=== PATIENT | male | born 1975 | race Caucasian/White ===

== ENCOUNTER 2023-06-26 13:54 | Outpatient (BNV) | payer SELFPAY | END 2023-06-30 11:27 | PROVIDERS: Admitting Provider Psychiatry & Neurology Psychiatry; Visit Provider Internal Medicine Cardiovascular Disease | DX: R07.9 Chest pain, unspecified (principal) | CPT/HCPCS: 93010 ==

== ENCOUNTER 2023-06-26 13:54 | Inpatient (IN) | payer SELFPAY ==
[2023-06-26 14:18] VITALS: BP 134/98; PULSE 100; RESP 18; TEMP 36.5; O2SAT 93
[2023-06-26 14:19] VITALS: BMI 31.3
--- NOTE | 2023-06-26 16:29 | PM.EVENT ---
Event Note Date of Service: 06/26/23 Event Note: reviewed chart from sending hospital: Past medical history degenerative disc disease, atrial septal defect, brain aneurysm, stroke, multiple TIA?s, right thumb amputation status post cancer Elevated WBC; repeat CBC showed downward trend Otherwise labs grossly WNL including lytes, BUN/CR, H&H LFTs UDS not done; EKG not done Chest x-ray:? Patchy by basal opacities slightly decreased from prior study; no definite new airspace disease Time Spent With Patient Time: Total time managing care of this patient today ____ minutes.
--- NOTE | 2023-06-26 17:17 | P.CONHOSP_ITS ---
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 Medical consult for admission H&P. ?Patient complains of chronic lower back pain that is around baseline. Also complains of chronic right thumb phantom pain at site of amputation, around baseline. Also reports history of chronic headaches, currently symptom-free. Patient otherwise has no acute medical complaints. No chest pain/pressure, palpitations. Denies shortness of breath. No fever, chills, nausea, vomiting, abdominal pain. Denies acute vision loss, numbness/tingling or weakness in extremities. Patient seen freely ambulating on unit with cane. Reports he is mostly noncompliant with medications in the community. Chart review indicates he is on aspirin but not statin, the reason is unclear. Review of Systems Review of Systems: Chronic lower back pain Chronic phantom pain in right thumb at site of amputation Patient reports has no acute medical complaints at this time. 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 Atrial septal defect Amputation of right thumb Ischemic cerebrovascular accident (CVA) TIA (transient ischemic attack) Social History Advance Directives: No Advance Directives Information Provided: No Meds Allergies Allergy/AdvReac Type Severity Reaction Status Date / Time fish derived [fish] Allergy Severe Anaphylaxis Verified 06/26/23 16:05 Penicillins Allergy Severe Anaphylaxis Verified 06/26/23 16:05 Active Medications: Current Medications Acetaminophen (Acetaminophen 325 Mg Tablet) 650 mg PO Q6H PRN PRN Reason: Headache/Pain Mild Scale (1-3) Al Hydroxide/Mg Hydroxide (Magnesium Hydrox/Alum Hydrox 30 Ml Oral.Susp) 30 ml PO Q6H PRN PRN Reason: Heartburn/Nausea Hydroxyzine HCl (Hydroxyzine Hcl 25 Mg Tablet) 25 mg PO Q6H PRN PRN Reason: Anxiety Magnesium Hydroxide (Milk Of Magnesia 30 Ml Oral.Susp) 30 ml PO DAILY PRN PRN Reason: Constipation Nicotine Polacrilex (Nicotine Polacrilex 2 Mg Gum) 4 mg BUCCAL Q2H PRN PRN Reason: Nicotine Cravings Olanzapine (Olanzapine 5 Mg Tablet) 5 mg PO TID PRN PRN Reason: agitation Trazodone HCl (Trazodone Hcl 50 Mg Tablet) 50 mg PO BEDTIME MRX1 PRN PRN Reason: Insomnia Home Medications Medication Instructions Recorded Confirmed Last Taken Type Spiriva Respimat 2 puff inhalation DAILY 06/26/23 06/26/23 06/24/23 19:00 H istory 2 puffs albuterol 2 puff inhalation Q6H PRN 06/26/23 06/26/23 Unknown History Shortness Of Breath Or Wheezing aspirin 81 mg PO DAILY 06/26/23 06/26/23 06/26/23 09:00 History 81 mg budesonide-formoterol 2 puff inhalation BID 06/26/23 06/26/23 06/24/23 19:00 History 2 puffs cholecalciferol (vitamin D3) 2,000 units PO DAILY 06/26/23 06/26/23 06/26/23 09:00 History cyclobenzaprine 10 mg tablet 10 mg PO Q4H PRN Pain 06/26/23 06/26/23 06/26/23 09:00 History 10 mg gabapentin 300 mg capsule 600 mg PO BID 06/26/23 06/26/23 06/26/23 09:00 History 600 mg mirtazapine 30 mg tablet 30 mg PO BEDTIME 06/26/23 06/26/23 06/25/23 19:00 History 30 mg omeprazole 40 mg PO DAILY@0630 06/26/23 06/26/23 Unknown History quetiapine 200 mg tablet 200 mg PO BEDTIME 06/26/23 06/26/23 06/25/23 19:00 History 200 mg tramadol 50 mg tablet 50 - 100 mg PO Q4H PRN Pain 06/26/23 06/26/23 06/26/23 09:00 History 100 mg Physical Exam Vital Signs and Narrative: Vital Signs: Last Vital Signs Temp 97.7 F 06/26/23 14:18 Pulse 100 06/26/23 14:18 Resp 18 06/26/23 14:18 BP 134/98 H 06/26/23 14:18 Pulse Ox 93 06/26/23 14:18 O2 Del Method Room Air 06/26/23 14:18 BMI result Body Mass Index 31.3 General: AOx3, no acute distress Resp: CTA bilaterally CVS: S1, S2, RRR GI: +BS, NT, no distention Skin: Warm, dry Neuro: Cranial nerves II-XII grossly intact bilaterally. Motor grossly intact bilaterally. Right upper extremity hand blade bender furnace tender slightly diminished. Extremities: No edema. Right thumb s/p partial amputation. 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 Medical consult for admission H&P. Mood disorder Plan as per Psychiatry CAD/HLD/hx of TIAs and ischemic CVA Continue aspirin Patient does not appear to be on a statin Check lipid panel and consider starting on atorvastatin 40 mg daily if elevated GERD Continue PPI Asthma Not in acute exacerbation Continue home inhalers Chronic lower back pain Continue cyclobenzaprine, gabapentin Thank you for allowing us to participate in the care of this patient. Signing off at this time. Please re-consult if any acute complaints or issues arise.
[2023-06-26 18:00] VITALS: BP 122/85; PULSE 92; TEMP 36.4; O2SAT 93
[2023-06-26] MEDS: Cyclobenzaprine HCl 10 MG TABLET PO (18:09)
[2023-06-26] MEDS: traMADoL HCL 50 MG TABLET PO (18:09)
[2023-06-26] MEDS: QUEtiapine Fumarate 200 MG TABLET PO (19:48)
[2023-06-26] MEDS: Mirtazapine 30 MG TABLET PO (19:48)
[2023-06-26] MEDS: Gabapentin 300 MG CAPSULE 600 MG PO (19:48)
--- NOTE | 2023-06-27 01:36 | PC.ADMIT ---
A white, , Georgian-speaking male, aged 47 years was admitted to [facility] CV at [address] [facility] ED. Pt presented at [facility] on 06/25/23 c/o worsening depression and SI with a plan to shoot himself with a gun. Pt stated that he tried to get his gun from a friend, but was unable to reach him. Pt reported recently presenting at an ED with similar presentation; pt said was admitted I[facility] but discharged within 13 hours. Pt has a history of similar presentations. Pt reported history of two previous suicide attempts in the past. Pt reported anxiety 9/10, depression 7/10. Pt denied current SI and HI; pt says can seek help from staff. Pt denied AVH. Pt reports poor sleep with insomnia and frequent awakening. Pt reports 8/10 back and right thumb pain; pt utilized PRN flexeril and PRN tramadol with good effect. Pt is a daily smoker; PRN nicorette is ordered. Pt declined flu shot. Pt was cooperative with admission. Pt stated he is open to medication management. Pt says he currently does not have PCP, therapist, or psychiatric medication prescriber. Pt has meds ordered through Kris Aragon, a recent provider pt had at [place]. Pt reports sobriety from [facility] for 4 years and stated does not use substances. Medical issues include: history of TIAs, hyperlipidemia, GERD, esophageal erosion, asthma, COPD, history of pneumonia X 3 in 3 months, partial amputation of right thumb last January r/t squamous cell carcinoma, history of hernia, knee and neck surgery. Pt reported unwitnessed caron bleeding when having a bowel movement during shift. Pt stated bleeding r/t history of hemorrhoid removal, and an ulcer. Pt said also he is worried he may have a fissure. Pt stated rectal bleeding of this type has been a issue for him on and off for 15 years. Pt added this occurs especially when he is under stress. Pt is homeless and reports is with a 3 year old son. Pt says recent stressors include homelessness, cancer diagnosis and the fact that his and child are moving away to [place]. Pt is taking medications and eating meal. [id number] done, admission orders obtained and initial treatment plan done but not signed. Skin check done upon arrival. Pt was unable to do safety tool. Pt is resting in group room B on 15 minute checks at this time.
[2023-06-27 09:49] VITALS: BP 112/62; PULSE 90; RESP 18; TEMP 36.3; O2SAT 90
--- NOTE | 2023-06-27 10:28 | P.HPPS_ITS ---
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 Patient was recently discharge (either from psych ED or psychiatric admission) at his own request after a few hours, since he was not allowed to use his phone to face time his beloved son while on the unit, which is of paramount importance to him and his protection factor; he went to a hotel, but suicidality remained and he called his friend to get a hold of a gun but could not reach him. Patient then self presented. On the unit he is irritable with staff, not cooperative, refused some medications including inhaler out of irritation... And because of his demeanor is somewhat difficult with which to engage. Patient shares that he has lost everything due to cancer and multiple medical comorbidities. 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 Patient said if it were not for his son he would kill himself... He sometimes says his situation is unrepairable but other times says he wants to get better; however he often does not take medication after leaving the hospital; says because of homelessness hard to engage in therapy. Reports in the past he has been on Wellbutrin and lithium; agrees to get a Wellbutrin now. Patient has been sober for 4 years; denies manic episodes saying he got a bipolar diagnosis while he was steeped in alcohol abuse. Past Psychiatric History: Multiple past psychiatric admissions Reports history of overdoses and suicide attempts Med trials: Spivey, Wellbutrin, says both helped Medical Evaluation Reviewed: Yes Past medical history degenerative disc disease, atrial septal defect, brain aneurysm, stroke, multiple TIA?s, right thumb amputation status post cancer Elevated WBC; repeat CBC showed downward trend Otherwise labs grossly WNL including lytes, BUN/CR, H&H LFTs UDS not done; EKG not done Lipid panel/hemoglobin A1c not done; ordered here but patient refused Chest x-ray:? 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 Has a and 3-year-old son who live in [place]; not sure about the current relationship Patient is effectively homeless, sending money to his and child Substance History: Sober for 4 years; was drinking alcohol excessively prior to this Trauma History: Deferred Diagnostics Vital Signs (24Hr): Vital Signs - 24 hr 06/26/23 14:18 06/26/23 18:00 06/27/23 09:49 Temperature 97.7 F 97.5 F 97.4 F Pulse Rate 100 92 90 Respiratory Rate 18 18 Blood Pressure 134/98 H 122/85 112/62 Pulse Oximetry 93 93 90 L Oxygen Delivery Method Room Air Room Air Room Air BMI result Body Mass Index 31.3 Meds/Allergies Meds Home Medications Medication Instructions Recorded Confirmed Type Spiriva Respimat 2 puff inhalation DAILY 06/26/23 06/26/23 History albuterol 2 puff inhalation Q6H PRN 06/26/23 06/26/23 History Shortness Of Breath Or Wheezing aspirin 81 mg PO DAILY 06/26/23 06/26/23 History budesonide-formoterol 2 puff inhalation BID 06/26/23 06/26/23 History cholecalciferol (vitamin D3) 2,000 units PO DAILY 06/26/23 06/26/23 History cyclobenzaprine 10 mg tablet 10 mg PO Q4H PRN Pain 06/26/23 06/26/23 History gabapentin 300 mg capsule 600 mg PO BID 06/26/23 06/26/23 History mirtazapine 30 mg tablet 30 mg PO BEDTIME 06/26/23 06/26/23 History omeprazole 40 mg PO DAILY@0630 06/26/23 06/26/23 History quetiapine 200 mg tablet 200 mg PO BEDTIME 06/26/23 06/26/23 History tramadol 50 mg tablet 50 - 100 mg PO Q4H PRN Pain 06/26/23 06/26/23 History Allergies Allergies Allergy/AdvReac Type Severity Reaction Status Date / Time fish derived [fish] Allergy Severe Anaphylaxis Verified 06/26/23 16:05 Penicillins Allergy Severe Anaphylaxis Verified 06/26/23 16:05 Mental Status Exam Mental Status Exam Narrative: Pt is alert and oriented; behavior is irritable, reactive, un- cooperative; patient is not in distress; dressed in casual attire, scruffy and unkempt; mood is described as depressed and affect constricted; eye contact avoidant; Speech is normal rate, volume and prosody and not pressured; both psychomotor agitation/retardation present; thought process is organized and goal directed; Thought content is on psychosocial stressors; otherwise pertinent to relevant topics and without any delusional content, paranoid ideations or grandiosity; reports chronic, constant SI with recent plan and intent, however says son is strong protective factor and he would not kill himself; denies HI. There is no evidence of perceptual disturbance. Patients insight and judgment impaired Assessment & Plan Assessment & Plan (1) MDD (major depressive disorder), recurrent severe, without psychosis: Status: Acute Code(s): F33.2 - Major depressive disorder, recurrent severe without psychotic features (2) Amputation of right thumb: Status: Acute Code(s): S68.011A - Complete traumatic metacarpophalangeal amputation of right thumb, initial encounter (3) 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 Patient was recently discharge (either from psych ED or psychiatric admission) at his own request after a few hours, since he was not allowed to use his phone to face time his beloved son while on the unit, which is of paramount importance to him and his protection factor; he went to a hotel, but suicidality remained and he called his friend to get a hold of a gun but could not reach him. Patient then self presented. On the unit he is irritable with staff, not cooperative, refused some medications including inhaler out of irritation... And because of his demeanor is somewhat difficult with which to engage. Patient shares that he has lost everything due to cancer and multiple medical comorbidities. 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 Patient said if it were not for his son he would kill himself... He sometimes says his situation is unrepairable but other times says he wants to get better; however he often does not take medication after leaving the hospital; says because of homelessness hard to engage in therapy. Reports in the past he has been on Wellbutrin and lithium; agrees to get a Wellbutrin now. Patient has been sober for 4 years; denies manic episodes saying he got a bipolar diagnosis while he was steeped in alcohol abuse. Impression: Patient is irritable and somewhat a difficult historian. Reports depression which he seems to say is mostly situational and due to medical comorbidities and being away from his son. However there is likely a mood disorder as well. Patient Demonstrating borderline traits. Patient mentions both recent intention to kill himself as well as saying he would never kill himself; also that his situation can not be fixed but is future oriented, wanting to get back to work at [employer]. He is currently on mirtazapine 30 mg q.h.s. and Seroquel 200 mg q.h.s. which he says are only to help with sleep and not being used to treat any kind of psychiatric illness. He says he was on lithium and Wellbutrin in the past both of which were helpful; agrees to getting back on Wellbutrin since it is the easier of the 2 Plan: CV Q 15 minute checks Start Wellbutrin XL 150 mg daily Continue mirtazapine 30 mg q.h.s. Continue Seroquel 200 mg q.h.s. Patient refused labs for lipid panel and hemoglobin A1c Medical assessment: 1. CAD/HLD/hx of TIAs and ischemic CVA -Continue aspirin -not on statin -Check lipid panel and consider starting on atorvastatin 40 mg daily if elevated 2. GERD: Continue PPI 3. Asthma: Not in acute exacerbation, Continue home inhalers 4. Chronic lower back pain: Continue cyclobenzaprine, gabapentin Patient educated on: diagnosis, medication risk/benefits, substance abuse, therapeutic strategies and medical condition Informed Consent: understands Reason for continued inpatient stay Substantial Risk for: rapid decompensation Statement Statement: I have reviewed the history and physical and performed a pertinent examination on my patient. No changes have occurred unless specified. If the History and Physical was not performed prior to admission, the Hospitalist's service will be consulted for completing the admission physical. Time Spent With Patient Time: Total time managing care of this patient today ____ minutes.
[2023-06-27] MEDS: Cyclobenzaprine HCl 10 MG TABLET PO (16:25)
[2023-06-27] MEDS: traMADoL HCL 50 MG TABLET PO ×2 (16:25→19:45)
[2023-06-27] MEDS: Nicotine Polacrilex 2 MG GUM 4 MG BUCCAL (16:27)
[2023-06-27 19:30] VITALS: BP 122/62; PULSE 74; RESP 16; TEMP 36.6; O2SAT 97
[2023-06-27] MEDS: Gabapentin 300 MG CAPSULE 600 MG PO (19:44)
[2023-06-27] MEDS: QUEtiapine Fumarate 200 MG TABLET PO (19:45)
[2023-06-27] MEDS: Acetaminophen 325 MG TABLET 650 MG PO (19:45)
[2023-06-27] MEDS: Mirtazapine 30 MG TABLET PO (19:45)
[2023-06-27 20:11] LABS: Appearance Urine Clear; Color Urine Yellow; Glucose Urine UA Negative (Negative); Leukocyte Esterase Urine Negative (Negative); Nitrite Urine Negative (Negative); Specific Gravity - Urine 1.015 (1.005-1.025); Urine Blood Negative (Negative); Urine Ketones Negative (Negative); Urine Protein Negative (Neg-Trace)
[2023-06-27 20:25] LABS: Bacteria Urine Trace (None Seen); Hyaline Casts Urine 0-2 /LPF (0-2); RBC Urine 0-2 /HPF (0-2); Squamous Epithelial Cell Urine 0-2 /HPF (0-2); WBC Urine 0-5 /HPF (0-5)
[2023-06-27] MEDS: hydrOXYzine HCL 25 MG TABLET PO (20:42)
[2023-06-28 06:00] VITALS: RESP 18
--- NOTE | 2023-06-28 11:02 | P.PNPSI_ITS ---
Subjective Subjective Date of Service: 06/28/23 Reason For Visit: Unspecified mood disorde Interim History: met with patient; discussed with team pt irritable this AM regarding tramadol orders, saying they were wrong; in his irritation he refused all his AM meds; pt then said he also had a migraine. He later apologized to staff for being irritable, barking at people. pt talked about his life struggles with medical illness and thumb amputation from this past Jan. He said he does not want Oxy since he has been sober from alcohol for 4 years and does not want to risk addiction. He says he's been getting tramadol for the pain; voluneers that maybe it's just phantom pain... but it still hurts. Pt says he's still suicidal but also says he would not hurt himself out of love for his son; he also expresses a lot of future oriented thinking saying he calls daily to the mcc in [place] (down the street from /son) to see if there is room; he also says he's trying to find a family mcc up her in [place] and that the family will go to whichever comes open first. Pt also talks about wanting to eventually get back to work at [employer] and that he would transfer down to a store in [place] at some point if that's where he ends up. Discussed meds and pt grateful that field underwriter is exploring med management w/ him. He continues to agree to Wellbutrin but also agrees to try low dose Risperdal to see if it will help w/ he says is a chronic anger that's always with him... Mental Status Exam Mental Status Exam Narrative: Pt is alert and oriented; behavior is irritable, emotionally reactive, but also able to calm down, be cooperative and apologetic; patient is not in distress; dressed in casual attire, scruffy and unkempt; mood is described as depressed and affect constricted; eye contact appropriate; Speech is normal rate, volume and prosody and not pressured; both psychomotor agitation/retardation present; thought process is organized and goal directed; Thought content is on psychosocial stressors; otherwise pertinent to relevant topics and without any delusional content, paranoid ideations or grandiosity; reports chronic, constant SI with recent plan and intent, however says son is strong protective factor and he would not kill himself; denies HI. There is no evidence of perceptual disturbance. Patients insight and judgment impaired but likely close to baseline. Diagnostics Vital Signs (24Hr): Vital Signs - 24 hr 06/27/23 19:30 06/28/23 06:00 Temperature 97.8 F Pulse Rate 74 Respiratory Rate 16 18 Blood Pressure 122/62 Pulse Oximetry 97 Oxygen Delivery Method Room Air BMI result Body Mass Index 31.3 Labs Labs: Laboratory Results - last 48 hr 06/27/23 20:00 Urine Color Yellow Urine Appearance Clear Urine pH 6.0 Ur Specific [place] 1.015 Urine Protein Negative Urine Glucose (UA) Negative Urine Ketones Negative Urine Blood Negative Urine Nitrite Negative Ur Leukocyte Esterase Negative Urine RBC 0-2 Urine WBC 0-5 Ur Squamous Epith Cells 0-2 Urine Bacteria Trace Hyaline Casts 0-2 Medications Medications Current Medications Acetaminophen (Acetaminophen 325 Mg Tablet) 650 mg PO Q6H PRN PRN Reason: Headache/Pain Mild Scale (1-3) Last Admin: 06/27/23 19:45 Dose: 650 mg Al Hydroxide/Mg Hydroxide (Magnesium Hydrox/Alum Hydrox 30 Ml Oral.Susp) 30 ml PO Q6H PRN PRN Reason: Heartburn/Nausea Albuterol Sulfate (Albuterol Sulfate 90 Mcg 8 Gm Inhaler) 2 puff INHALE Q6H PRN PRN Reason: Shortness Of Breath Or Wheezing Aspirin (Aspirin Enteric Coated 81 Mg Tablet.Dr) 81 mg PO DAILY [facility] Last Admin: 06/28/23 09:44 Dose: Not Given Bupropion HCl (Bupropion Hcl Xl 150 Mg Tab.Er.24h) 150 mg PO DAILY [facility] Last Admin: 06/28/23 09:44 Dose: Not Given Cyclobenzaprine HCl (Cyclobenzaprine Hcl 10 Mg Tablet) 10 mg PO Q4H PRN PRN Reason: musculo-skeletal discomfort Last Admin: 06/27/23 16:25 Dose: 10 mg Fluticasone/Vilanterol (Fluticasone/Vilanterol 200/25 Blst.W.Dev) 1 puff INHALE RDAILY [facility] Last Admin: 06/28/23 08:21 Dose: Not Given Gabapentin (Gabapentin 300 Mg Capsule) 600 mg PO BID [facility] Last Admin: 06/28/23 09:45 Dose: Not Given Hydroxyzine HCl (Hydroxyzine Hcl 25 Mg Tablet) 25 mg PO Q6H PRN PRN Reason: Anxiety Last Admin: 06/27/23 20:42 Dose: 25 mg Magnesium Hydroxide (Milk Of Magnesia 30 Ml Oral.Susp) 30 ml PO DAILY PRN PRN Reason: Constipation Mirtazapine (Mirtazapine 30 Mg Tablet) 30 mg PO BEDTIME [facility] Last Admin: 06/27/23 19:45 Dose: 30 mg Nicotine Polacrilex (Nicotine Polacrilex 2 Mg Gum) 4 mg BUCCAL Q2H PRN PRN Reason: Nicotine Cravings Last Admin: 06/27/23 16:27 Dose: 2 mg Olanzapine (Olanzapine 5 Mg Tablet) 5 mg PO TID PRN PRN Reason: agitation Omeprazole (Omeprazole 40 Mg Capsule.Dr) 40 mg PO DAILY@0630 [facility] Last Admin: 06/28/23 06:28 Dose: Not Given Quetiapine Fumarate (Quetiapine Fumarate 200 Mg Tablet) 200 mg PO BEDTIME [facility] Last Admin: 06/27/23 19:45 Dose: 200 mg Tiotropium [place] (Tiotropium [place] 2.5 Mcg 1 Puff/2.5 Mcg Mist.Inhal) 2 puff INHALE RDAILY [facility] Last Admin: 06/28/23 08:21 Dose: Not Given Tramadol HCl (Tramadol Hcl 50 Mg Tablet) 50 mg PO Q4H PRN PRN Reason: Pain, Severe (Pain Scale 7-10) Last Admin: 06/27/23 19:45 Dose: 50 mg Trazodone HCl (Trazodone Hcl 50 Mg Tablet) 50 mg PO BEDTIME MRX1 PRN PRN Reason: Insomnia Vitamin D (Cholecalciferol (Vitamin D3) 25 Mcg Tablet) 25 mcg PO DAILY [facility] Last Admin: 06/28/23 09:44 Dose: Not Given Allergies Allergies Allergy/AdvReac Type Severity Reaction Status Date / Time fish derived [fish] Allergy Severe Anaphylaxis Verified 06/26/23 16:05 Penicillins Allergy Severe Anaphylaxis Verified 06/26/23 16:05 Assessment & Plan Assessment & Plan (1) MDD (major depressive disorder), recurrent severe, without psychosis: Status: Acute Code(s): F33.2 - Major depressive disorder, recurrent severe without psychotic features (2) Amputation of right thumb: Status: Acute Code(s): S68.011A - Complete traumatic metacarpophalangeal amputation of right thumb, initial encounter (3) 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 Patient was recently discharge (either from psych ED or psychiatric admission) at his own request after a few hours, since he was not allowed to use his phone to face time his beloved son while on the unit, which is of paramount importance to him and his protection factor; he went to a hotel, but suicidality remained and he called his friend to get a hold of a gun but could not reach him. Patient then self presented. On the unit he is irritable with staff, not cooperative, refused some medications including inhaler out of irritation... And because of his demeanor is somewhat difficult with which to engage. Patient shares that he has lost everything due to cancer and multiple medical comorbidities. 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 Patient said if it were not for his son he would kill himself... He sometimes says his situation is unrepairable but other times says he wants to get better; however he often does not take medication after leaving the hospital; says because of homelessness hard to engage in therapy. Reports in the past he has been on Wellbutrin and lithium; agrees to get a Wellbutrin now. Patient has been sober for 4 years; denies manic episodes saying he got a bipolar diagnosis while he was steeped in alcohol abuse. Initial Impression: On admission Patient is irritable and somewhat a difficult historian. Reports depression which he seems to say is mostly situational and due to medical comorbidities and being away from his son. However there is likely a mood disorder as well. Patient Demonstrating borderline traits. Patient mentions both recent intention to kill himself as well as saying he would never kill himself; he is future oriented, wanting to get back to his family and eventually back work at [employer]. He is currently on mirtazapine 30 mg q.h.s. and Seroquel 200 mg q.h.s. which he says are only to help with sleep and not being used to treat any kind of psychiatric illness. He says he was on lithium and Wellbutrin in the past both of which were helpful; agrees to getting back on Wellbutrin since it is the easier of the two. -patient struggles with chronic SI and emotional reactivity and at times thinks about suicide; however he seems to be stongly committed to his family and thus, continually says he remains here for his son. He has the same approach to getting help, initially saying nothing will help...and finding reasons justifying this perspective, but again remains future oriented, wanted psychotropic medications and making plans to resolve his issues, get back with his family and get back to work. Hospital course: 06/27 pt irritable this AM regarding tramadol orders, saying they were wrong; in his irritation he refused all his AM meds; pt then said he also had a migraine. He later apologized to staff for being irritable, barking at people. pt talked about his life struggles with medical illness and thumb amputation from this past Jan. He said he does not want Oxy since he has been sober from alcohol for 4 years and does not want to risk addiction. He says he's been getting tramadol for the pain; voluneers that maybe it's just phantom pain... but it still hurts. Pt says he's still suicidal but also says he would not hurt himself out of love for his son; he also expresses a lot of future oriented thinking saying he calls daily to the mcc in [place] (down the street from /son) to see if there is room; he also says he's trying to find a family mcc up her in [place] and that the family will go to whichever comes open first. Pt also talks about wanting to eventually get back to work at [employer] and that he would transfer down to a store in [place] at some point if that's where he ends up. Discussed meds and pt grateful that field underwriter is exploring med management w/ him. He continues to agree to Wellbutrin but also agrees to try low dose Risperdal to see if it will help w/ he says is a chronic anger that's always with him... Plan: CV Q 15 minute checks START Risperdal 0.5mg bID Continue Wellbutrin XL 150 mg daily Continue mirtazapine 30 mg q.h.s.(for sleep) Continue Seroquel 200 mg q.h.s. (for sleep) Conitnue Tramadol 50mg q4h prn with option to take 2 tabs together; total daily dose of 300mg (field underwriter reviewed [facility] and last script was for 7 days, 50mg tabs Qty 35 (ostensibly making total daily dose 250mg) Patient refused labs for lipid panel and hemoglobin A1c Medical assessment: 1. CAD/HLD/hx of TIAs and ischemic CVA -Continue aspirin -not on statin -Check lipid panel and consider starting on atorvastatin 40 mg daily if elevated 2. GERD: Continue PPI 3. Asthma: Not in acute exacerbation, Continue home inhalers 4. Chronic lower back pain: Continue cyclobenzaprine, gabapentin Patient educated on: diagnosis, medication risk/benefits and medical condition Informed Consent: understands and further education needed Reason for continued inpatient stay Substantial Risk for: stable for discharge Time Spent With Patient Time: Total time managing care of this patient today ____ minutes.
[2023-06-28] MEDS: traMADoL HCL 50 MG TABLET PO ×3 (12:41→20:20)
[2023-06-28 17:07] VITALS: BP 127/85; PULSE 107; RESP 20; TEMP 36.2; O2SAT 95
[2023-06-28] MEDS: hydrOXYzine HCL 25 MG TABLET PO (17:22)
[2023-06-28] MEDS: Gabapentin 300 MG CAPSULE 600 MG PO (20:19)
[2023-06-28] MEDS: Cyclobenzaprine HCl 10 MG TABLET PO (20:19)
[2023-06-28] MEDS: Mirtazapine 30 MG TABLET PO (20:20)
[2023-06-28] MEDS: QUEtiapine Fumarate 200 MG TABLET PO (20:20)
[2023-06-28] MEDS: traZODone HCL 50 MG TABLET PO (20:20)
[2023-06-29 08:59] VITALS: RESP 18
[2023-06-29] MEDS: buPROPion HCl XL 150 MG TAB.ER.24H PO (09:46)
[2023-06-29] MEDS: Gabapentin 300 MG CAPSULE 600 MG PO ×2 (09:46→20:10)
[2023-06-29] MEDS: risperiDONE 0.5 MG TABLET PO ×2 (09:46→20:09)
[2023-06-29] MEDS: Aspirin Enteric Coated 81 MG TABLET.DR PO (09:46)
[2023-06-29] MEDS: Tiotropium Bromide 2.5 mcg 1 PUFF/2.5 MCG MIST.INHAL 2 PUFF INHALE (09:46)
[2023-06-29] MEDS: Omeprazole 40 MG CAPSULE.DR PO (09:46)
[2023-06-29] MEDS: Cholecalciferol (Vitamin D3) 25 MCG TABLET PO (09:46)
[2023-06-29] MEDS: Fluticasone/Vilanterol 200/25 BLST.W.DEV 1 PUFF INHALE (09:47)
--- NOTE | 2023-06-29 11:29 | P.PNPSI_ITS ---
Subjective Subjective Date of Service: 06/29/23 Reason For Visit: Unspecified mood disorde Subjective Notes: Conditional Voluntary Interim History: Reviewed with Dr. Guevara. Keeping to self. laying in bed. Pt reports feeling more tired than usual today; pt stated, I feel like everything is aggravating me. Normally my son calms me down. I want to get back to work and get my life on track . pt denies SI/HI/VH/AH. Pt reports he is open to go to either respite or a assisted . Medication Compliance: Yes Mental Status Exam Mental Status Exam Narrative: Pt is alert and oriented; behavior is cooperative and calm; dressed in casual attire; mood is described as okay ; eye contact appropriate; Speech is normal rate, volume and prosody and not pressured; thought process is organized and goal directed; Thought content is on tx; denies SI/HI/VH/AH. Diagnostics Vital Signs (24Hr): Vital Signs - 24 hr 06/28/23 17:07 06/29/23 08:59 Temperature 97.2 F Pulse Rate 107 H Respiratory Rate 20 18 Blood Pressure 127/85 Pulse Oximetry 95 Oxygen Delivery Method Room Air BMI result Body Mass Index 31.3 Labs Labs: Laboratory Results - last 48 hr 06/27/23 20:00 Urine Color Yellow Urine Appearance Clear Urine pH 6.0 Ur Specific [place] 1.015 Urine Protein Negative Urine Glucose (UA) Negative Urine Ketones Negative Urine Blood Negative Urine Nitrite Negative Ur Leukocyte Esterase Negative Urine RBC 0-2 Urine WBC 0-5 Ur Squamous Epith Cells 0-2 Urine Bacteria Trace Hyaline Casts 0-2 Medications Medications Current Medications Acetaminophen (Acetaminophen 325 Mg Tablet) 650 mg PO Q6H PRN PRN Reason: Headache/Pain Mild Scale (1-3) Last Admin: 06/27/23 19:45 Dose: 650 mg Al Hydroxide/Mg Hydroxide (Magnesium Hydrox/Alum Hydrox 30 Ml Oral.Susp) 30 ml PO Q6H PRN PRN Reason: Heartburn/Nausea Albuterol Sulfate (Albuterol Sulfate 90 Mcg 8 Gm Inhaler) 2 puff INHALE Q6H PRN PRN Reason: Shortness Of Breath Or Wheezing Aspirin (Aspirin Enteric Coated 81 Mg Tablet.) 81 mg PO DAILY [facility] Last Admin: 06/29/23 09:46 Dose: 81 mg Bupropion HCl (Bupropion Hcl Xl 150 Mg Tab.Er.24h) 150 mg PO DAILY [facility] Last Admin: 06/29/23 09:46 Dose: 150 mg Cyclobenzaprine HCl (Cyclobenzaprine Hcl 10 Mg Tablet) 10 mg PO Q4H PRN PRN Reason: musculo-skeletal discomfort Last Admin: 06/28/23 20:19 Dose: 10 mg Fluticasone/Vilanterol (Fluticasone/Vilanterol 200/25 Blst.W.Dev) 1 puff INHALE RDAILY [facility] Last Admin: 06/29/23 09:47 Dose: 1 puff Gabapentin (Gabapentin 300 Mg Capsule) 600 mg PO BID [facility] Last Admin: 06/29/23 09:46 Dose: 600 mg Hydroxyzine HCl (Hydroxyzine Hcl 25 Mg Tablet) 25 mg PO Q6H PRN PRN Reason: Anxiety Last Admin: 06/28/23 17:22 Dose: 25 mg Magnesium Hydroxide (Milk Of Magnesia 30 Ml Oral.Susp) 30 ml PO DAILY PRN PRN Reason: Constipation Mirtazapine (Mirtazapine 30 Mg Tablet) 30 mg PO BEDTIME [facility] Last Admin: 06/28/23 20:20 Dose: 30 mg Nicotine Polacrilex (Nicotine Polacrilex 2 Mg Gum) 4 mg BUCCAL Q2H PRN PRN Reason: Nicotine Cravings Last Admin: 06/27/23 16:27 Dose: 2 mg Olanzapine (Olanzapine 5 Mg Tablet) 5 mg PO TID PRN PRN Reason: agitation Omeprazole (Omeprazole 40 Mg Capsule.Dr) 40 mg PO DAILY@0630 [facility] Last Admin: 06/29/23 09:46 Dose: 40 mg Quetiapine Fumarate (Quetiapine Fumarate 200 Mg Tablet) 200 mg PO BEDTIME [facility] Last Admin: 06/28/23 20:20 Dose: 200 mg Risperidone (Risperidone 0.5 Mg Tablet) 0.5 mg PO BID [facility] Last Admin: 06/29/23 09:46 Dose: 0.5 mg Tiotropium [place] (Tiotropium [place] 2.5 Mcg 1 Puff/2.5 Mcg Mist.Inhal) 2 puff INHALE RDAILY [facility] Last Admin: 06/29/23 09:46 Dose: 2 puff Tramadol HCl (Tramadol Hcl 50 Mg Tablet) 50 mg PO Q4H PRN PRN Reason: Pain, Severe (Pain Scale 7-10) Last Admin: 06/28/23 20:20 Dose: 50 mg Trazodone HCl (Trazodone Hcl 50 Mg Tablet) 50 mg PO BEDTIME MRX1 PRN PRN Reason: Insomnia Last Admin: 06/28/23 20:20 Dose: 50 mg Vitamin D (Cholecalciferol (Vitamin D3) 25 Mcg Tablet) 25 mcg PO DAILY [facility] Last Admin: 06/29/23 09:46 Dose: 25 mcg Allergies Allergies Allergy/AdvReac Type Severity Reaction Status Date / Time fish derived [fish] Allergy Severe Anaphylaxis Verified 06/26/23 16:05 Penicillins Allergy Severe Anaphylaxis Verified 06/26/23 16:05 Assessment & Plan Assessment & Plan (1) MDD (major depressive disorder), recurrent severe, without psychosis: Status: Acute Code(s): F33.2 - Major depressive disorder, recurrent severe without psychotic features (2) Amputation of right thumb: Status: Acute Code(s): S68.011A - Complete traumatic metacarpophalangeal amputation of right thumb, initial encounter (3) 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 Patient was recently discharge (either from psych ED or psychiatric admission) at his own request after a few hours, since he was not allowed to use his phone to face time his beloved son while on the unit, which is of paramount importance to him and his protection factor; he went to a hotel, but suicidality remained and he called his friend to get a hold of a gun but could not reach him. Patient then self presented. On the unit he is irritable with staff, not cooperative, refused some medications including inhaler out of irritation... And because of his demeanor is somewhat difficult with which to engage. Patient shares that he has lost everything due to cancer and multiple medical comorbidities. 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 Patient said if it were not for his son he would kill himself... He sometimes says his situation is unrepairable but other times says he wants to get better; however he often does not take medication after leaving the hospital; says because of homelessness hard to engage in therapy. Reports in the past he has been on Wellbutrin and lithium; agrees to get a Wellbutrin now. Patient has been sober for 4 years; denies manic episodes saying he got a bipolar diagnosis while he was steeped in alcohol abuse. Impression: Patient is irritable and somewhat a difficult historian. Reports depression which he seems to say is mostly situational and due to medical comorbidities and being away from his son. However there is likely a mood disorder as well. Patient Demonstrating borderline traits. Patient mentions both recent intention to kill himself as well as saying he would never kill himself; also that his situation can not be fixed but is future oriented, wanting to get back to work at [employer]. He is currently on mirtazapine 30 mg q.h.s. and Seroquel 200 mg q.h.s. which he says are only to help with sleep and not being used to treat any kind of psychiatric illness. He says he was on lithium and Wellbutrin in the past both of which were helpful; agrees to getting back on Wellbutrin since it is the easier of the 2 Plan: CV Q 15 minute checks Start Wellbutrin XL 150 mg daily Continue mirtazapine 30 mg q.h.s. Continue Seroquel 200 mg q.h.s. Patient refused labs for lipid panel and hemoglobin A1c Medical assessment: 1. CAD/HLD/hx of TIAs and ischemic CVA -Continue aspirin -not on statin -Check lipid panel and consider starting on atorvastatin 40 mg daily if elevated 2. GERD: Continue PPI 3. Asthma: Not in acute exacerbation, Continue home inhalers 4. Chronic lower back pain: Continue cyclobenzaprine, gabapentin 06/28: continue current tx plan. Patient educated on: diagnosis, medication risk/benefits and therapeutic strategies Informed Consent: understands Reason for continued inpatient stay Substantial Risk for: med/psych decompensation Time Spent With Patient Time: Total time managing care of this patient today _20___ minutes.
[2023-06-29] MEDS: traMADoL HCL 50 MG TABLET PO ×3 (14:22→20:12)
[2023-06-29] MEDS: Cyclobenzaprine HCl 10 MG TABLET PO ×2 (14:22→20:08)
[2023-06-29] MEDS: Albuterol Sulfate 90 MCG 8 GM INHALER 2 PUFF INHALE (18:25)
[2023-06-29 19:45] VITALS: BP 114/75; PULSE 105; TEMP 36.7
[2023-06-29] MEDS: QUEtiapine Fumarate 200 MG TABLET PO (20:07)
[2023-06-29] MEDS: Mirtazapine 30 MG TABLET PO (20:10)
--- NOTE | 2023-06-30 | ECG_ITS ---
Test Reason : CHEST PAIN Blood Pressure : / mmHG Vent. Rate : 097 BPM Atrial Rate : 097 BPM P-R Int : 134 ms QRS Dur : 084 ms QT Int : 336 ms P-R-T Axes : 042 -02 023 degrees QTc Int : 426 ms Normal sinus rhythm Normal ECG No previous ECGs available Referred By: Mendez Schmidt Electronically Signed By:ORLANDO WALKER MD
[2023-06-30 07:52] VITALS: RESP 18
--- NOTE | 2023-06-30 08:38 | P.PNPSI_ITS ---
Subjective Subjective Date of Service: 06/30/23 Reason For Visit: Unspecified mood disorde Subjective Notes: Conditional Voluntary Interim History: Reviewed with Dr. Guevara. active on unit. Pt reports he continues to feel angry but not as much as before . Pt reports suicidal ideation; pt stated, I know I'm always going to have suicidal thoughts. I just don't know if I'd kill myself when I leave here . Pt did not disclose any plan. Pt reported chest pain; hospitalist consulted. labs and EKG ordered. Per hospitalist note: The patient's chest pain is atypical. EKG is reassuring, no ischemic changes and trop remains pending. Nitro is not indicated. The patient also has no documented or reported history of CAD/MO/angina. The nitro he was prescribed came from an ED provider for TIA's and has not seen a kitchen stewardess in years. His blood pressure is 112/87. Would not recommend keeping a standing prn order of nitro for administration as patient does not describe history of anginal chest pain and instead states he knows when to take nitro if his pain is not reproducible. Troponin is below detectable limits. Please reach out if any recurrence of chest pain, however, no further intervention is required for this atypical pain. Medication Compliance: Yes Side effects from medications: No Attending Groups: Intermittent Review of Systems Review of Systems Yes all other systems are reviewed and are negative Mental Status Exam Mental Status Exam Narrative: Pt is alert and oriented; behavior is cooperative and calm; dressed in casual attire; mood is described as angry ; eye contact appropriate; Speech is normal rate, volume and prosody and not pressured; thought process is organized and goal directed; Thought content is on tx; denies HI/VH/AH. Pt reports suicidal ideation with no plan. Diagnostics Vital Signs (24Hr): Vital Signs - 24 hr 06/29/23 08:59 06/29/23 19:45 06/30/23 07:52 Temperature 98.0 F Pulse Rate 105 H Respiratory Rate 18 18 Blood Pressure 114/75 BMI result Body Mass Index 31.3 Labs 06/30/23 11:09 06/30/23 11:09 Medications Medications Current Medications Acetaminophen (Acetaminophen 325 Mg Tablet) 650 mg PO Q6H PRN PRN Reason: Headache/Pain Mild Scale (1-3) Last Admin: 06/27/23 19:45 Dose: 650 mg Al Hydroxide/Mg Hydroxide (Magnesium Hydrox/Alum Hydrox 30 Ml Oral.Susp) 30 ml PO Q6H PRN PRN Reason: Heartburn/Nausea Albuterol Sulfate (Albuterol Sulfate 90 Mcg 8 Gm Inhaler) 2 puff INHALE Q6H PRN PRN Reason: Shortness Of Breath Or Wheezing Last Admin: 06/29/23 18:25 Dose: 2 puff Aspirin (Aspirin Enteric Coated 81 Mg Tablet.) 81 mg PO DAILY [facility] Last Admin: 06/29/23 09:46 Dose: 81 mg Bupropion HCl (Bupropion Hcl Xl 150 Mg Tab.Er.24h) 150 mg PO DAILY [facility] Last Admin: 06/29/23 09:46 Dose: 150 mg Cyclobenzaprine HCl (Cyclobenzaprine Hcl 10 Mg Tablet) 10 mg PO Q4H PRN PRN Reason: musculo-skeletal discomfort Last Admin: 06/29/23 20:08 Dose: 10 mg Fluticasone/Vilanterol (Fluticasone/Vilanterol 200/25 Blst.W.Dev) 1 puff INHALE RDAILY [facility] Last Admin: 06/29/23 09:47 Dose: 1 puff Gabapentin (Gabapentin 300 Mg Capsule) 600 mg PO BID [facility] Last Admin: 06/29/23 20:10 Dose: 600 mg Hydroxyzine HCl (Hydroxyzine Hcl 25 Mg Tablet) 25 mg PO Q6H PRN PRN Reason: Anxiety Last Admin: 06/28/23 17:22 Dose: 25 mg Magnesium Hydroxide (Milk Of Magnesia 30 Ml Oral.Susp) 30 ml PO DAILY PRN PRN Reason: Constipation Mirtazapine (Mirtazapine 30 Mg Tablet) 30 mg PO BEDTIME [facility] Last Admin: 06/29/23 20:10 Dose: 30 mg Nicotine Polacrilex (Nicotine Polacrilex 2 Mg Gum) 4 mg BUCCAL Q2H PRN PRN Reason: Nicotine Cravings Last Admin: 06/27/23 16:27 Dose: 2 mg Olanzapine (Olanzapine 5 Mg Tablet) 5 mg PO TID PRN PRN Reason: agitation Omeprazole (Omeprazole 40 Mg Capsule.) 40 mg PO DAILY@0630 [facility] Last Admin: 06/30/23 05:33 Dose: Not Given Quetiapine Fumarate (Quetiapine Fumarate 200 Mg Tablet) 200 mg PO BEDTIME [facility] Last Admin: 06/29/23 20:07 Dose: 200 mg Risperidone (Risperidone 0.5 Mg Tablet) 0.5 mg PO BID [facility] Last Admin: 06/29/23 20:09 Dose: 0.5 mg Tiotropium [place] (Tiotropium [place] 2.5 Mcg 1 Puff/2.5 Mcg Mist.Inhal) 2 puff INHALE RDAILY [facility] Last Admin: 06/29/23 09:46 Dose: 2 puff Tramadol HCl (Tramadol Hcl 50 Mg Tablet) 50 mg PO Q4H PRN PRN Reason: Pain, Severe (Pain Scale 7-10) Last Admin: 06/29/23 20:12 Dose: 50 mg Trazodone HCl (Trazodone Hcl 50 Mg Tablet) 50 mg PO BEDTIME MRX1 PRN PRN Reason: Insomnia Last Admin: 06/28/23 20:20 Dose: 50 mg Vitamin D (Cholecalciferol (Vitamin D3) 25 Mcg Tablet) 25 mcg PO DAILY [facility] Last Admin: 06/29/23 09:46 Dose: 25 mcg Allergies Allergies Allergy/AdvReac Type Severity Reaction Status Date / Time fish derived [fish] Allergy Severe Anaphylaxis Verified 06/26/23 16:05 Penicillins Allergy Severe Anaphylaxis Verified 06/26/23 16:05 Assessment & Plan Assessment & Plan (1) MDD (major depressive disorder), recurrent severe, without psychosis: Status: Acute Code(s): F33.2 - Major depressive disorder, recurrent severe without psychotic features (2) Amputation of right thumb: Status: Acute Code(s): S68.011A - Complete traumatic metacarpophalangeal amputation of right thumb, initial encounter (3) 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 Patient was recently discharge (either from psych ED or psychiatric admission) at his own request after a few hours, since he was not allowed to use his phone to face time his beloved son while on the unit, which is of paramount importance to him and his protection factor; he went to a hotel, but suicidality remained and he called his friend to get a hold of a gun but could not reach him. Patient then self presented. On the unit he is irritable with staff, not cooperative, refused some medications including inhaler out of irritation... And because of his demeanor is somewhat difficult with which to engage. Patient shares that he has lost everything due to cancer and multiple medical comorbidities. 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 Patient said if it were not for his son he would kill himself... He sometimes says his situation is unrepairable but other times says he wants to get better; however he often does not take medication after leaving the hospital; says because of homelessness hard to engage in therapy. Reports in the past he has been on Wellbutrin and lithium; agrees to get a Wellbutrin now. Patient has been sober for 4 years; denies manic episodes saying he got a bipolar diagnosis while he was steeped in alcohol abuse. Impression: Patient is irritable and somewhat a difficult historian. Reports depression which he seems to say is mostly situational and due to medical comorbidities and being away from his son. However there is likely a mood disorder as well. Patient Demonstrating borderline traits. Patient mentions both recent intention to kill himself as well as saying he would never kill himself; also that his situation can not be fixed but is future oriented, wanting to get back to work at [employer]. He is currently on mirtazapine 30 mg q.h.s. and Seroquel 200 mg q.h.s. which he says are only to help with sleep and not being used to treat any kind of psychiatric illness. He says he was on lithium and Wellbutrin in the past both of which were helpful; agrees to getting back on Wellbutrin since it is the easier of the 2 Plan: CV Q 15 minute checks Start Wellbutrin XL 150 mg daily Continue mirtazapine 30 mg q.h.s. Continue Seroquel 200 mg q.h.s. Patient refused labs for lipid panel and hemoglobin A1c Medical assessment: 1. CAD/HLD/hx of TIAs and ischemic CVA -Continue aspirin -not on statin -Check lipid panel and consider starting on atorvastatin 40 mg daily if elevated 2. GERD: Continue PPI 3. Asthma: Not in acute exacerbation, Continue home inhalers 4. Chronic lower back pain: Continue cyclobenzaprine, gabapentin 06/28: continue current tx plan. 06/29: active on unit. Pt reports he continues to feel angry but not as much as before . Pt reports suicidal ideation; pt stated, I know I'm always going to have suicidal thoughts. I just don't know if I'd kill myself when I leave here . Pt did not disclose any plan. Pt reported chest pain; hospitalist consulted. labs and EKG ordered. Per hospitalist note: The patient's chest pain is atypical. EKG is reassuring, no ischemic changes and trop remains pending. Nitro is not indicated. The patient also has no documented or reported history of CAD/MO/angina. The nitro he was prescribed came from an ED provider for TIA's and has not seen a kitchen stewardess in years. His blood pressure is 112/87. Would not recommend keeping a standing prn order of nitro for administration as patient does not describe history of anginal chest pain and instead states he knows when to take nitro if his pain is not reproducible. Troponin is below detectable limits. Please reach out if any recurrence of chest pain, however, no further intervention is required for this atypical pain. Patient educated on: diagnosis, medication risk/benefits and therapeutic strategies Informed Consent: understands Reason for continued inpatient stay Substantial Risk for: harm to self and med/psych decompensation Time Spent With Patient Time: Total time managing care of this patient today _20___ minutes.
[2023-06-30] MEDS: Omeprazole 40 MG CAPSULE.DR PO (08:46)
[2023-06-30] MEDS: Aspirin Enteric Coated 81 MG TABLET.DR PO (08:46)
[2023-06-30] MEDS: Cholecalciferol (Vitamin D3) 25 MCG TABLET PO (08:46)
[2023-06-30] MEDS: Gabapentin 300 MG CAPSULE 600 MG PO ×2 (08:46→19:50)
[2023-06-30] MEDS: buPROPion HCl XL 150 MG TAB.ER.24H PO (08:46)
[2023-06-30] MEDS: risperiDONE 0.5 MG TABLET PO ×2 (08:47→19:49)
[2023-06-30] MEDS: Fluticasone/Vilanterol 200/25 BLST.W.DEV 1 PUFF INHALE (08:48)
[2023-06-30] MEDS: Tiotropium Bromide 2.5 mcg 1 PUFF/2.5 MCG MIST.INHAL 2 PUFF INHALE (08:49)
[2023-06-30] MEDS: Cyclobenzaprine HCl 10 MG TABLET PO ×2 (09:01→17:39)
[2023-06-30] MEDS: traMADoL HCL 50 MG TABLET PO ×2 (09:01→09:02)
[2023-06-30 10:35] VITALS: BP 112/87; PULSE 107; RESP 20; O2SAT 97
[2023-06-30 11:15] LABS: MANUAL DIFF FLAG NO
[2023-06-30 11:19] LABS: Basophils Percent Auto 0.5 % (0-2); Eosinophils Absolute Auto 0.3 X10*3/uL (0.0-0.4); Eosinophils Percent Auto 3.3 % (0-4); Hematocrit 47.1 % (42.0-52.0); Hemoglobin 16.1 g/dl (14.0-18.0); Imm Gran Abs Auto 0.03 X10*3/uL (0.00-0.03); Imm Gran Pct Auto 0.4 % (0.0-0.4); Lymphocytes Absolute Auto 3.8 X10*3/uL (1.2-4.9); Lymphocytes Percent Auto 45.5 % (20-40); Mean Corpuscular HGB Conc 34.2 g/dl (31.0-36.0); Mean Corpuscular Hemoglobin 28.5 pg (27.0-33.0); Mean Corpuscular Volume 83.4 fL (80.0-98.0); Mean Platelet Volume 9.1 fL (9.4-12.4); Monocytes Absolute Auto 0.6 X10*3/uL (0.1-1.2); Neutrophils Absolute Auto 3.6 x10*3/uL (2.0-8.3); Neutrophils Percent Auto 43.3 % (45-73); Platelet Count 254 X10*3/uL (160-400); Red Blood Count 5.65 X10*6/uL (4.60-5.80); Red Cell Distribution Width 13.4 % (11.0-16.0); White Blood Count 8.4 X10*3/uL (4.8-10.8)
--- NOTE | 2023-06-30 11:29 | P.CONHOSP_ITS ---
History of Present Illness Data of Consult Service Date: 06/30/23 Requesting physician: Mendez Schmidt Primary Care Provider: Unknown Physician HPI Reason for consult: chest pain 47 year old male with history of multiple TIA/CVAs with sequela of right sided weakness, hld, hx brain aneurysm, DDD, s/p R thumb amputation due to squamous cell carcinoma 02/09, hx alcohol use disorder in remission, mood disorder, and atrial septal defect admitted to psychiatry [facility] consult placed to hospitalist service for evaluation of chest pain. Patient had an episode of non radiating chest pain described as a sharp mid sternal/left sided chest pain that was not reproducible to palpation. He states there may have been some dyspnea associated but no nausea, vomiting, diaphoresis. Denies anxiety or heartburn. Denies any retrosternal chest pressure. The patient has no known history of CAD and has never had MA. He states he has been given nitro when he has had TIA's. On review of record, patient had a prescription of nitro prescribed by an ED doctor in October, but has not seen a medical coding instructor in years. The patient states he knows to take nitro when the pain is unable to be reproduced to palpation. Blood pressure was 112/87 at time of pain, HR 107. No fevers, chills, st, congestion, abd pain, n/v, diaphoresis. No visual changes, focalCurrently asymptomatic. EKG shows NSR, rate 97, no st/t wave abnormality. No leukocytosis. Renal function/lytes normal. Trop below detectable limits. 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 Atrial septal defect Amputation of right thumb Ischemic cerebrovascular accident (CVA) TIA (transient ischemic attack) Social History Household Members: None Housing: Homeless Do you presently have visiting nurse or other home services: No Patient Tobacco Use Status: Current everyday Tobacco user Tobacco use type: Cigarette Cigarette Packs Per Day: 10 Cigarettes Per Day: 200.0 Years Smoked: 37 Smoked in Last 30 Days: Yes e-Cigarette/Vaping Use: Never Used Patient Interested in Nicotine Replacement: Yes (pt has josh gum ordered) Patient Given Instructions on How to Stop Smoking: Yes Date Education Initiated: 06/26/23 Second Hand Smoke Exposure: Yes Use of substances other than those prescribed or required for medical reasons: No Currently Displaying Signs/Symptoms of Drug Intoxication Withdrawal: No Any prior treatment program specific to substance use: Yes (ETOH per pt) Have you been hit, kicked, punched, or otherwise hurt by someone within the past year? If so, by whom?: No Do you feel safe in your current relationship?: Yes Is there a partner from a previous relationship who is making you feel unsafe now?: No Are you made to feel afraid or neglected: No Spiritual Healthcare Practices: None Amish Healthcare Practices: NONE Cultural Healthcare Practices: NONE Advance Directives: No Advance Directives Information Provided: No Do you have thoughts of harming others: None Do you have a plan to hurt others: No Plan Recently lost weight without trying: Yes How much weight loss: 2-13 pounds Eating poorly because of decreased appetite: No Nutrition screen score: 3 Nutrition Risks: No Nutritional Risk and Difficulty chewing Poor oral hygiene: No service: No Sexual orientation: Straight/Heterosexual Meds Allergies Allergy/AdvReac Type Severity Reaction Status Date / Time fish derived [fish] Allergy Severe Anaphylaxis Verified 06/26/23 16:05 Penicillins Allergy Severe Anaphylaxis Verified 06/26/23 16:05 Active Medications: Current Medications Acetaminophen (Acetaminophen 325 Mg Tablet) 650 mg PO Q6H PRN PRN Reason: Headache/Pain Mild Scale (1-3) Last Admin: 06/27/23 19:45 Dose: 650 mg Al Hydroxide/Mg Hydroxide (Magnesium Hydrox/Alum Hydrox 30 Ml Oral.Susp) 30 ml PO Q6H PRN PRN Reason: Heartburn/Nausea Albuterol Sulfate (Albuterol Sulfate 90 Mcg 8 Gm Inhaler) 2 puff INHALE Q6H PRN PRN Reason: Shortness Of Breath Or Wheezing Last Admin: 06/29/23 18:25 Dose: 2 puff Aspirin (Aspirin Enteric Coated 81 Mg Tablet.Dr) 81 mg PO DAILY [facility] Last Admin: 06/30/23 08:46 Dose: 81 mg Bupropion HCl (Bupropion Hcl Xl 150 Mg Tab.Er.24h) 150 mg PO DAILY [facility] Last Admin: 06/30/23 08:46 Dose: 150 mg Cyclobenzaprine HCl (Cyclobenzaprine Hcl 10 Mg Tablet) 10 mg PO Q4H PRN PRN Reason: musculo-skeletal discomfort Last Admin: 06/30/23 09:01 Dose: 10 mg Fluticasone/Vilanterol (Fluticasone/Vilanterol 200/25 Blst.W.Dev) 1 puff INHALE RDAILY [facility] Last Admin: 06/30/23 08:48 Dose: 1 puff Gabapentin (Gabapentin 300 Mg Capsule) 600 mg PO BID [facility] Last Admin: 06/30/23 08:46 Dose: 600 mg Hydroxyzine HCl (Hydroxyzine Hcl 25 Mg Tablet) 25 mg PO Q6H PRN PRN Reason: Anxiety Last Admin: 06/28/23 17:22 Dose: 25 mg Magnesium Hydroxide (Milk Of Magnesia 30 Ml Oral.Susp) 30 ml PO DAILY PRN PRN Reason: Constipation Mirtazapine (Mirtazapine 30 Mg Tablet) 30 mg PO BEDTIME [facility] Last Admin: 06/29/23 20:10 Dose: 30 mg Nicotine Polacrilex (Nicotine Polacrilex 2 Mg Gum) 4 mg BUCCAL Q2H PRN PRN Reason: Nicotine Cravings Last Admin: 06/27/23 16:27 Dose: 2 mg Nitroglycerin (Nitroglycerin 0.4 Mg Tab.Subl) 0.4 mg SUBLINGUAL Q5MX3 PRN PRN Reason: Chest Pain Olanzapine (Olanzapine 5 Mg Tablet) 5 mg PO TID PRN PRN Reason: agitation Omeprazole (Omeprazole 40 Mg Capsule.Dr) 40 mg PO DAILY@0630 [facility] Last Admin: 06/30/23 08:46 Dose: 40 mg Quetiapine Fumarate (Quetiapine Fumarate 200 Mg Tablet) 200 mg PO BEDTIME [facility] Last Admin: 06/29/23 20:07 Dose: 200 mg Risperidone (Risperidone 0.5 Mg Tablet) 0.5 mg PO BID [facility] Last Admin: 06/30/23 08:47 Dose: 0.5 mg Tiotropium [place] (Tiotropium [place] 2.5 Mcg 1 Puff/2.5 Mcg Mist.Inhal) 2 puff INHALE RDAILY [facility] Last Admin: 06/30/23 08:49 Dose: 2 puff Tramadol HCl (Tramadol Hcl 50 Mg Tablet) 100 mg PO TID PRN PRN Reason: Pain, Severe (Pain Scale 7-10) Trazodone HCl (Trazodone Hcl 50 Mg Tablet) 50 mg PO BEDTIME MRX1 PRN PRN Reason: Insomnia Last Admin: 06/28/23 20:20 Dose: 50 mg Vitamin D (Cholecalciferol (Vitamin D3) 25 Mcg Tablet) 25 mcg PO DAILY [facility] Last Admin: 06/30/23 08:46 Dose: 25 mcg Home Medications Medication Instructions Recorded Confirmed Last Taken Type Spiriva Respimat 2 puff inhalation DAILY 06/26/23 06/26/23 06/24/23 19:00 History 2 puffs albuterol 2 puff inhalation Q6H PRN 06/26/23 06/26/23 Unknown History Shortness Of Breath Or Wheezing aspirin 81 mg PO DAILY 06/26/23 06/26/23 06/26/23 09:00 History 81 mg budesonide-formoterol 2 puff inhalation BID 06/26/23 06/26/23 06/24/23 19:00 History 2 puffs cholecalciferol (vitamin D3) 2,000 units PO DAILY 06/26/23 06/26/23 06/26/23 09:00 History cyclobenzaprine 10 mg tablet 10 mg PO Q4H PRN Pain 06/26/23 06/26/23 06/26/23 09:00 History 10 mg gabapentin 300 mg capsule 600 mg PO BID 06/26/23 06/26/23 06/26/23 09:00 History 600 mg mirtazapine 30 mg tablet 30 mg PO BEDTIME 06/26/23 06/26/23 06/25/23 19:00 History 30 mg omeprazole 40 mg PO DAILY@0630 06/26/23 06/26/23 Unknown History quetiapine 200 mg tablet 200 mg PO BEDTIME 06/26/23 06/26/23 06/25/23 19:00 History 200 mg tramadol 50 mg tablet 50 - 100 mg PO Q4H PRN Pain 06/26/23 06/26/23 06/26/23 09:00 History 100 mg Physical Exam 2 Vital Signs and Narrative: Vital Signs: Last Vital Signs Temp 98.0 F 06/29/23 19:45 Pulse 107 H 06/30/23 10:35 Resp 20 06/30/23 10:35 BP 112/87 06/30/23 10:35 Pulse Ox 97 06/30/23 10:35 O2 Del Method Room Air 06/30/23 10:35 BMI result Body Mass Index 31.3 Constitutional - Awake and Alert, No apparent distress Eyes - PERRLA, EOMI Cardiovascular - S1S2, RRR, No edema Respiratory - Normal lung expansion, Normal respiratory effort, No respiratory distress, CTA bilaterally Extremities - no calf tenderness bilaterally, no swelling Skin - Warm/Dry Neurological - Alert & oriented x3, CN II-XII in tact, 5/5 strength BUE and BLE Psychological - Appropriate affect Results Labs 06/30/23 11:09 06/30/23 11:09 Labs: Laboratory Results - last 24 hr 06/30/23 11:09 MCV 83.4 MCH 28.5 MCHC 34.2 RDW 13.4 Plt Count 254 MPV 9.1 L Immature Gran % (Auto) 0.4 Neut % (Auto) 43.3 L Lymph % (Auto) 45.5 H [place] % (Auto) 7.0 Eos % (Auto) 3.3 Baso % (Auto) 0.5 Lymph # (Auto) 3.8 [place] # (Auto) 0.6 Eos # (Auto) 0.3 Baso # (Auto) 0.0 Abs Immat Gran (auto) 0.03 Absolute Neuts (auto) 3.6 Absolute Nucleated RBC 0.000 Nucleated RBC % (auto) 0.0 Assessment and Plan (1) Atypical chest pain: Status: Acute Plan 47 year old male with history of multiple TIA/CVAs with sequela of right sided weakness, hld, hx brain aneurysm, DDD, s/p R thumb amputation due to squamous cell carcinoma 02/09, hx alcohol use disorder in remission, mood disorder, and atrial septal defect admitted to psychiatry with consult placed to hospitalist service for evaluation of chest pain. The patient's chest pain is atypical. EKG is reassuring, no ischemic changes and trop remains pending. Nitro is not indicated. The patient also has no documented or reported history of CAD/MA/angina. The nitro he was prescribed came from an ED provider for TIA's and has not seen a medical coding instructor in years. His blood pressure is 112/87. Would not recommend keeping a standing prn order of nitro for administration as patient does not describe history of anginal chest pain and instead states he knows when to take nitro if his pain is not reproducible. Troponin is below detectable limits. Please reach out if any recurrence of chest pain, however, no further intervention is required for this atypical pain.
[2023-06-30 11:34] LABS: Alanine Aminotransferase 57 U/L (0-40); Albumin Level 4.2 g/dL (3.5-5.0); Alkaline Phosphatase 142 U/L (39-117); Anion Gap 11 (12-20); Aspartate Amino Transferase 44 U/L (5-37); Bilirubin Total 0.2 mg/dL (0.0-1.0); Blood Urea Nitrogen 19 mg/dL (9-16); Carbon Dioxide 23 mmol/L (22-29); Chloride 109 mmol/L (96-108); Creatinine Clr Calc Pharmacy 125.4; Estimated Glomerular Filt Rate > 60; Glucose Random 106 mg/dL (60-115); Potassium 4.4 mmol/L (3.3-5.1); Sodium 139 mmol/L (135-145); Total Protein 7.7 g/dL (6.5-8.0)
[2023-06-30 11:49] LABS: Troponin-I High Sensitivity < 2.7 ng/L (<3.5-35.0)
[2023-06-30] MEDS: hydrOXYzine HCL 25 MG TABLET PO (12:39)
[2023-06-30] MEDS: Nicotine Polacrilex 2 MG GUM 4 MG BUCCAL ×2 (13:44→20:53)
[2023-06-30] MEDS: OLANZapine 5 MG TABLET PO (13:45)
[2023-06-30] MEDS: traMADoL HCL 50 MG TABLET 100 MG PO (17:39)
[2023-06-30] MEDS: QUEtiapine Fumarate 200 MG TABLET PO (19:50)
[2023-06-30] MEDS: Mirtazapine 30 MG TABLET PO (19:50)
[2023-06-30 20:30] VITALS: BP 114/78; PULSE 98; TEMP 36.2; O2SAT 92
[2023-07-01 07:45] VITALS: RESP 18
[2023-07-01] MEDS: Aspirin Enteric Coated 81 MG TABLET.DR PO (09:10)
[2023-07-01] MEDS: buPROPion HCl XL 150 MG TAB.ER.24H PO (09:10)
[2023-07-01] MEDS: risperiDONE 0.5 MG TABLET PO ×2 (09:10→19:51)
[2023-07-01] MEDS: Omeprazole 40 MG CAPSULE.DR PO (09:10)
[2023-07-01] MEDS: Gabapentin 300 MG CAPSULE 600 MG PO ×2 (09:10→19:50)
[2023-07-01] MEDS: Cholecalciferol (Vitamin D3) 25 MCG TABLET PO (09:10)
[2023-07-01] MEDS: traMADoL HCL 50 MG TABLET 100 MG PO ×3 (09:14→19:50)
[2023-07-01] MEDS: Cyclobenzaprine HCl 10 MG TABLET PO ×3 (09:15→22:13)
[2023-07-01] MEDS: Fluticasone/Vilanterol 200/25 BLST.W.DEV 1 PUFF INHALE (09:19)
[2023-07-01] MEDS: Tiotropium Bromide 2.5 mcg 1 PUFF/2.5 MCG MIST.INHAL 2 PUFF INHALE (09:19)
[2023-07-01] MEDS: Acetaminophen 325 MG TABLET 650 MG PO (13:35)
--- NOTE | 2023-07-01 16:09 | HO.PSYCHPN ---
Subjective Subjective Date of Service: 07/01/23 Reason For Visit: Unspecified mood disorde Subjective Notes: Conditional Voluntary Healthcare Proxy: No Guardianship: No Medical Problems Affecting Mental Status: No Interim History: Pt reports care home insomnia. Reports he continues with +SI, hoping to get to a point where he may feel this but not want to act upon it. Reports feeling less angry on current regime, credits this to antidepressant. Signed paperwork for [facility] today. Requested and received a letter he will send to work telling them of his absence due to hospitalization. Asks to increase Seroquel to 300 mg HS Medication Compliance: Yes Side effects from medications: No Attending Groups: Intermittent Review of Systems Acute medical concerns: No Medical Review of Systems: unchanged Review of Systems Review of Systems Yes all other systems are reviewed and are negative Mental Status Exam Mental Status Exam Patient Appearance: Appropriate Patient Orientation: Person, Place, Time and Situation Level of Consciousness: Alert Patient Behavior: Appropriate, Talkative, Cooperative and Good Eye Contact Mood Description: Depressed Affect Description: Flat and Apprehensive Patient Cognition Impaired: No Ability to Follow Directions: Good Speech Pattern: Spontaneous Speech Memory Description: Intact Hallucinations: None Delusions: Not Present Thought Process: Rumination and Goal Oriented Thought Content: positive for Intact, positive for Circumstantial and positive for Suicidal Ideation Depressive Symptoms: Thoughts of /Suicide Judgement: Good Diagnostics Vital Signs (24Hr): Vital Signs - 24 hr 06/30/23 20:30 07/01/23 07:45 Temperature 97.1 F Pulse Rate 98 Respiratory Rate 18 Blood Pressure 114/78 Pulse Oximetry 92 Oxygen Delivery Method Room Air Room Air BMI result Body Mass Index 31.3 Labs 06/30/23 11:09 06/30/23 11:09 Labs: Laboratory Results - last 48 hr 06/30/23 06/30/23 11:08 11:09 WBC 8.4 RBC 5.65 Hgb 16.1 Hct 47.1 MCV 83.4 MCH 28.5 MCHC 34.2 RDW 13.4 Plt Count 254 MPV 9.1 L Immature Gran % (Auto) 0.4 Neut % (Auto) 43.3 L Lymph % (Auto) 45.5 H Jenkins % (Auto) 7.0 Eos % (Auto) 3.3 Baso % (Auto) 0.5 Lymph # (Auto) 3.8 Jenkins # (Auto) 0.6 Eos # (Auto) 0.3 Baso # (Auto) 0.0 Abs Immat Gran (auto) 0.03 Absolute Neuts (auto) 3.6 Absolute Nucleated RBC 0.000 Nucleated RBC % (auto) 0.0 Sodium 139 Potassium 4.4 Chloride 109 H Carbon Dioxide 23 Anion Gap 11 L BUN 19 H Creatinine 0.84 Estim Creat Clear Calc 125.4 Estimated GFR > 60 Random Glucose 106 Calcium 10.0 Total Bilirubin 0.2 AST 44 H ALT 57 H Alkaline Phosphatase 142 H Troponin I High Sens < 2.7 Total Protein 7.7 Albumin 4.2 Medications Medications Current Medications Acetaminophen (Acetaminophen 325 Mg Tablet) 650 mg PO Q6H PRN PRN Reason: Headache/Pain Mild Scale (1-3) Last Admin: 07/01/23 13:35 Dose: 650 mg Al Hydroxide/Mg Hydroxide (Magnesium Hydrox/Alum Hydrox 30 Ml Oral.Susp) 30 ml PO Q6H PRN PRN Reason: Heartburn/Nausea Albuterol Sulfate (Albuterol Sulfate 90 Mcg 8 Gm Inhaler) 2 puff INHALE Q6H PRN PRN Reason: Shortness Of Breath Or Wheezing Last Admin: 06/29/23 18:25 Dose: 2 puff Aspirin (Aspirin Enteric Coated 81 Mg Tablet.Dr) 81 mg PO DAILY [facility] Last Admin: 07/01/23 09:10 Dose: 81 mg Bupropion HCl (Bupropion Hcl Xl 150 Mg Tab.Er.24h) 150 mg PO DAILY [facility] Last Admin: 07/01/23 09:10 Dose: 150 mg Cyclobenzaprine HCl (Cyclobenzaprine Hcl 10 Mg Tablet) 10 mg PO Q4H PRN PRN Reason: musculo-skeletal discomfort Last Admin: 07/01/23 15:29 Dose: 10 mg Fluticasone/Vilanterol (Fluticasone/Vilanterol 200/25 Blst.W.Dev) 1 puff INHALE RDAILY [facility] Last Admin: 07/01/23 09:19 Dose: 1 puff Gabapentin (Gabapentin 300 Mg Capsule) 600 mg PO BID [facility] Last Admin: 07/01/23 09:10 Dose: 600 mg Hydroxyzine HCl (Hydroxyzine Hcl 25 Mg Tablet) 25 mg PO Q6H PRN PRN Reason: Anxiety Last Admin: 06/30/23 12:39 Dose: 25 mg Magnesium Hydroxide (Milk Of Magnesia 30 Ml Oral.Susp) 30 ml PO DAILY PRN PRN Reason: Constipation Mirtazapine (Mirtazapine 30 Mg Tablet) 30 mg PO BEDTIME [facility] Last Admin: 06/30/23 19:50 Dose: 30 mg Nicotine Polacrilex (Nicotine Polacrilex 2 Mg Gum) 4 mg BUCCAL Q2H PRN PRN Reason: Nicotine Cravings Last Admin: 06/30/23 20:53 Dose: 4 mg Olanzapine (Olanzapine 5 Mg Tablet) 5 mg PO TID PRN PRN Reason: agitation Last Admin: 06/30/23 13:45 Dose: 5 mg Omeprazole (Omeprazole 40 Mg Capsule.Dr) 40 mg PO DAILY@0630 [facility] Last Admin: 07/01/23 09:10 Dose: 40 mg Quetiapine Fumarate (Quetiapine Fumarate 200 Mg Tablet) 200 mg PO BEDTIME [facility] Last Admin: 06/30/23 19:50 Dose: 200 mg Risperidone (Risperidone 0.5 Mg Tablet) 0.5 mg PO BID [facility] Last Admin: 07/01/23 09:10 Dose: 0.5 mg Tiotropium Phoenix (Tiotropium Phoenix 2.5 Mcg 1 Puff/2.5 Mcg Mist.Inhal) 2 puff INHALE RDAILY [facility] Last Admin: 07/01/23 09:19 Dose: 2 puff Tramadol HCl (Tramadol Hcl 50 Mg Tablet) 100 mg PO TID PRN PRN Reason: Pain, Severe (Pain Scale 7-10) Last Admin: 07/01/23 15:29 Dose: 100 mg Trazodone HCl (Trazodone Hcl 50 Mg Tablet) 50 mg PO BEDTIME MRX1 PRN PRN Reason: Insomnia Last Admin: 06/28/23 20:20 Dose: 50 mg Vitamin D (Cholecalciferol (Vitamin D3) 25 Mcg Tablet) 25 mcg PO DAILY [facility] Last Admin: 07/01/23 09:10 Dose: 25 mcg Allergies Allergies Allergy/AdvReac Type Severity Reaction Status Date / Time fish derived [fish] Allergy Severe Anaphylaxis Verified 06/26/23 16:05 Penicillins Allergy Severe Anaphylaxis Verified 06/26/23 16:05 Assessment & Plan Assessment & Plan (1) MDD (major depressive disorder), recurrent severe, without psychosis: Status: Acute Code(s): F33.2 - Major depressive disorder, recurrent severe without psychotic features (2) Amputation of right thumb: Status: Acute Code(s): S68.011A - Complete traumatic metacarpophalangeal amputation of right thumb, initial encounter (3) 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 Patient was recently discharge (either from psych ED or psychiatric admission) at his own request after a few hours, since he was not allowed to use his phone to face time his beloved son while on the unit, which is of paramount importance to him and his protection factor; he went to a hotel, but suicidality remained and he called his friend to get a hold of a gun but could not reach him. Patient then self presented. On the unit he is irritable with staff, not cooperative, refused some medications including inhaler out of irritation... And because of his demeanor is somewhat difficult with which to engage. Patient shares that he has lost everything due to cancer and multiple medical comorbidities. 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 Patient said if it were not for his son he would kill himself... He sometimes says his situation is unrepairable but other times says he wants to get better; however he often does not take medication after leaving the hospital; says because of homelessness hard to engage in therapy. Reports in the past he has been on Wellbutrin and lithium; agrees to get a Wellbutrin now. Patient has been sober for 4 years; denies manic episodes saying he got a bipolar diagnosis while he was steeped in alcohol abuse. Impression: Patient is irritable and somewhat a difficult historian. Reports depression which he seems to say is mostly situational and due to medical comorbidities and being away from his son. However there is likely a mood disorder as well. Patient Demonstrating borderline traits. Patient mentions both recent intention to kill himself as well as saying he would never kill himself; also that his situation can not be fixed but is future oriented, wanting to get back to work at [employer]. He is currently on mirtazapine 30 mg q.h.s. and Seroquel 200 mg q.h.s. which he says are only to help with sleep and not being used to treat any kind of psychiatric illness. He says he was on lithium and Wellbutrin in the past both of which were helpful; agrees to getting back on Wellbutrin since it is the easier of the 2 Plan: CV Q 15 minute checks Start Wellbutrin XL 150 mg daily Continue mirtazapine 30 mg q.h.s. Continue Seroquel 200 mg q.h.s. Patient refused labs for lipid panel and hemoglobin A1c Medical assessment: 1. CAD/HLD/hx of TIAs and ischemic CVA -Continue aspirin -not on statin -Check lipid panel and consider starting on atorvastatin 40 mg daily if elevated 2. GERD: Continue PPI 3. Asthma: Not in acute exacerbation, Continue home inhalers 4. Chronic lower back pain: Continue cyclobenzaprine, gabapentin 06/28: continue current tx plan. 06/29: active on unit. Pt reports he continues to feel angry but not as much as before . Pt reports suicidal ideation; pt stated, I know I'm always going to have suicidal thoughts. I just don't know if I'd kill myself when I leave here . Pt did not disclose any plan. Pt reported chest pain; hospitalist consulted. labs and EKG ordered. Per hospitalist note: The patient's chest pain is atypical. EKG is reassuring, no ischemic changes and trop remains pending. Nitro is not indicated. The patient also has no documented or reported history of CAD/[place]/angina. The nitro he was prescribed came from an ED provider for TIA's and has not seen a punch press operator helper in years. His blood pressure is 112/87. Would not recommend keeping a standing prn order of nitro for administration as patient does not describe history of anginal chest pain and instead states he knows when to take nitro if his pain is not reproducible. Troponin is below detectable limits. Please reach out if any recurrence of chest pain, however, no further intervention is required for this atypical pain. 06/30/22: Increase Seroquel to 300 mg HS. Pt reports feeling less anger today, remains with SI without plan Given a letter for work explaining absence. Patient educated on: medication risk/benefits and therapeutic strategies Informed Consent: understands Reason for continued inpatient stay Substantial Risk for: med/psych decompensation Time Spent With Patient Time: Total time managing care of this patient today ____ minutes.
[2023-07-01 17:45] VITALS: BP 108/80; PULSE 98; RESP 16; TEMP 36.6; O2SAT 90
[2023-07-01] MEDS: QUEtiapine Fumarate 300 MG TABLET PO (19:50)
[2023-07-01] MEDS: Mirtazapine 30 MG TABLET PO (19:51)
[2023-07-02] MEDS: Fluticasone/Vilanterol 200/25 BLST.W.DEV 1 PUFF INHALE (10:30)
[2023-07-02] MEDS: Tiotropium Bromide 2.5 mcg 1 PUFF/2.5 MCG MIST.INHAL 2 PUFF INHALE (10:30)
[2023-07-02] MEDS: risperiDONE 0.5 MG TABLET PO ×2 (10:31→19:18)
[2023-07-02] MEDS: Gabapentin 300 MG CAPSULE 600 MG PO ×3 (10:31→19:18)
[2023-07-02] MEDS: buPROPion HCl XL 150 MG TAB.ER.24H PO (10:31)
[2023-07-02] MEDS: Cholecalciferol (Vitamin D3) 25 MCG TABLET PO (10:31)
[2023-07-02] MEDS: Aspirin Enteric Coated 81 MG TABLET.DR PO (10:31)
[2023-07-02] MEDS: traMADoL HCL 50 MG TABLET 100 MG PO ×3 (10:32→21:15)
[2023-07-02] MEDS: Cyclobenzaprine HCl 10 MG TABLET PO ×2 (10:32→19:20)
[2023-07-02 10:49] VITALS: BP 116/59; PULSE 111; RESP 16; TEMP 36.2; O2SAT 91
[2023-07-02] MEDS: Acetaminophen 325 MG TABLET 650 MG PO (11:22)
--- NOTE | 2023-07-02 12:55 | HO.PSYCHPN ---
Subjective Subjective Date of Service: 07/02/23 Reason For Visit: Unspecified mood disorde Subjective Notes: Conditional Voluntary Healthcare Proxy: No Guardianship: No Medical Problems Affecting Mental Status: Yes (chronic pain) Interim History: Today, Yobany is experiencing an increase in back pain. Discussion of pain hx and pain mgt hx and concerns about sobriety. Medication regime reviewed and adjusted. Team continues applications for programs with pt without results at this time. Medication Compliance: Yes Side effects from medications: No Attending Groups: Yes Review of Systems Acute medical concerns: Yes Chronic pain Medical Review of Systems: unchanged Review of Systems Review of Systems Increase in back pain today Mental Status Exam Mental Status Exam Patient Appearance: Appropriate Patient Orientation: Person, Place, Time and Situation Level of Consciousness: Alert Patient Behavior: Appropriate, Talkative, Cooperative and Good Eye Contact Mood Description: Depressed Affect Description: Flat and Apprehensive Patient Cognition Impaired: No Ability to Follow Directions: Good Speech Pattern: Spontaneous Speech Memory Description: Intact Hallucinations: None Delusions: Not Present Thought Process: Rumination and Goal Oriented Thought Content: positive for Intact, positive for Circumstantial and positive for Suicidal Ideation Depressive Symptoms: Thoughts of /Suicide Judgement: Good Diagnostics Vital Signs (24Hr): Vital Signs - 24 hr 07/01/23 17:45 07/02/23 10:49 Temperature 97.8 F 97.1 F Pulse Rate 98 111 H Respiratory Rate 16 16 Blood Pressure 108/80 116/59 L Pulse Oximetry 90 L 91 L Oxygen Delivery Method Room Air Room Air BMI result Body Mass Index 31.3 Labs 06/30/23 11:09 06/30/23 11:09 Medications Medications Current Medications Acetaminophen (Acetaminophen 325 Mg Tablet) 650 mg PO Q6H PRN PRN Reason: Headache/Pain Mild Scale (1-3) Last Admin: 07/02/23 11:22 Dose: 650 mg Al Hydroxide/Mg Hydroxide (Magnesium Hydrox/Alum Hydrox 30 Ml Oral.Susp) 30 ml PO Q6H PRN PRN Reason: Heartburn/Nausea Albuterol Sulfate (Albuterol Sulfate 90 Mcg 8 Gm Inhaler) 2 puff INHALE Q6H PRN PRN Reason: Shortness Of Breath Or Wheezing Last Admin: 06/29/23 18:25 Dose: 2 puff Aspirin (Aspirin Enteric Coated 81 Mg Tablet.) 81 mg PO DAILY [facility] Last Admin: 07/02/23 10:31 Dose: 81 mg Bupropion HCl (Bupropion Hcl Xl 150 Mg Tab.Er.24h) 150 mg PO DAILY [facility] Last Admin: 07/02/23 10:31 Dose: 150 mg Cyclobenzaprine HCl (Cyclobenzaprine Hcl 10 Mg Tablet) 10 mg PO Q4H PRN PRN Reason: musculo-skeletal discomfort Last Admin: 07/02/23 10:32 Dose: 10 mg Fluticasone/Vilanterol (Fluticasone/Vilanterol 200/25 Blst.W.Dev) 1 puff INHALE RDAILY [facility] Last Admin: 07/02/23 10:30 Dose: 1 puff Gabapentin (Gabapentin 300 Mg Capsule) 600 mg PO BID [facility] Last Admin: 07/02/23 10:31 Dose: 600 mg Hydroxyzine HCl (Hydroxyzine Hcl 25 Mg Tablet) 25 mg PO Q6H PRN PRN Reason: Anxiety Last Admin: 06/30/23 12:39 Dose: 25 mg Magnesium Hydroxide (Milk Of Magnesia 30 Ml Oral.Susp) 30 ml PO DAILY PRN PRN Reason: Constipation Mirtazapine (Mirtazapine 30 Mg Tablet) 30 mg PO BEDTIME [facility] Last Admin: 07/01/23 19:51 Dose: 30 mg Nicotine Polacrilex (Nicotine Polacrilex 2 Mg Gum) 4 mg BUCCAL Q2H PRN PRN Reason: Nicotine Cravings Last Admin: 06/30/23 20:53 Dose: 4 mg Olanzapine (Olanzapine 5 Mg Tablet) 5 mg PO TID PRN PRN Reason: agitation Last Admin: 06/30/23 13:45 Dose: 5 mg Quetiapine Fumarate (Quetiapine Fumarate 300 Mg Tablet) 300 mg PO BEDTIME [facility] Last Admin: 07/01/23 19:50 Dose: 300 mg Risperidone (Risperidone 0.5 Mg Tablet) 0.5 mg PO BID [facility] Last Admin: 07/02/23 10:31 Dose: 0.5 mg Tiotropium Snow (Tiotropium Snow 2.5 Mcg 1 Puff/2.5 Mcg Mist.Inhal) 2 puff INHALE RDAILY [facility] Last Admin: 07/02/23 10:30 Dose: 2 puff Tramadol HCl (Tramadol Hcl 50 Mg Tablet) 100 mg PO TID PRN PRN Reason: Pain, Severe (Pain Scale 7-10) Last Admin: 07/02/23 10:32 Dose: 100 mg Trazodone HCl (Trazodone Hcl 50 Mg Tablet) 50 mg PO BEDTIME MRX1 PRN PRN Reason: Insomnia Last Admin: 06/28/23 20:20 Dose: 50 mg Vitamin D (Cholecalciferol (Vitamin D3) 25 Mcg Tablet) 25 mcg PO DAILY [facility] Last Admin: 07/02/23 10:31 Dose: 25 mcg Allergies Allergies Allergy/AdvReac Type Severity Reaction Status Date / Time fish derived [fish] Allergy Severe Anaphylaxis Verified 06/26/23 16:05 Penicillins Allergy Severe Anaphylaxis Verified 06/26/23 16:05 Assessment & Plan Assessment & Plan (1) MDD (major depressive disorder), recurrent severe, without psychosis: Status: Acute Code(s): F33.2 - Major depressive disorder, recurrent severe without psychotic features (2) Amputation of right thumb: Status: Acute Code(s): S68.011A - Complete traumatic metacarpophalangeal amputation of right thumb, initial encounter (3) 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 Patient was recently discharge (either from psych ED or psychiatric admission) at his own request after a few hours, since he was not allowed to use his phone to face time his beloved son while on the unit, which is of paramount importance to him and his protection factor; he went to a hotel, but suicidality remained and he called his friend to get a hold of a gun but could not reach him. Patient then self presented. On the unit he is irritable with staff, not cooperative, refused some medications including inhaler out of irritation... And because of his demeanor is somewhat difficult with which to engage. Patient shares that he has lost everything due to cancer and multiple medical comorbidities. 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 Patient said if it were not for his son he would kill himself... He sometimes says his situation is unrepairable but other times says he wants to get better; however he often does not take medication after leaving the hospital; says because of homelessness hard to engage in therapy. Reports in the past he has been on Wellbutrin and lithium; agrees to get a Wellbutrin now. Patient has been sober for 4 years; denies manic episodes saying he got a bipolar diagnosis while he was steeped in alcohol abuse. Impression: Patient is irritable and somewhat a difficult historian. Reports depression which he seems to say is mostly situational and due to medical comorbidities and being away from his son. However there is likely a mood disorder as well. Patient Demonstrating borderline traits. Patient mentions both recent intention to kill himself as well as saying he would never kill himself; also that his situation can not be fixed but is future oriented, wanting to get back to work at [employer]. He is currently on mirtazapine 30 mg q.h.s. and Seroquel 200 mg q.h.s. which he says are only to help with sleep and not being used to treat any kind of psychiatric illness. He says he was on lithium and Wellbutrin in the past both of which were helpful; agrees to getting back on Wellbutrin since it is the easier of the 2 Plan: CV Q 15 minute checks Start Wellbutrin XL 150 mg daily Continue mirtazapine 30 mg q.h.s. Continue Seroquel 200 mg q.h.s. Patient refused labs for lipid panel and hemoglobin A1c Medical assessment: 1. CAD/HLD/hx of TIAs and ischemic CVA -Continue aspirin -not on statin -Check lipid panel and consider starting on atorvastatin 40 mg daily if elevated 2. GERD: Continue PPI 3. Asthma: Not in acute exacerbation, Continue home inhalers 4. Chronic lower back pain: Continue cyclobenzaprine, gabapentin 06/28: continue current tx plan. 06/29: active on unit. Pt reports he continues to feel angry but not as much as before . Pt reports suicidal ideation; pt stated, I know I'm always going to have suicidal thoughts. I just don't know if I'd kill myself when I leave here . Pt did not disclose any plan. Pt reported chest pain; hospitalist consulted. labs and EKG ordered. Per hospitalist note: The patient's chest pain is atypical. EKG is reassuring, no ischemic changes and trop remains pending. Nitro is not indicated. The patient also has no documented or reported history of CAD/[place]/angina. The nitro he was prescribed came from an ED provider for TIA's and has not seen a pest control specialist in years. His blood pressure is 112/87. Would not recommend keeping a standing prn order of nitro for administration as patient does not describe history of anginal chest pain and instead states he knows when to take nitro if his pain is not reproducible. Troponin is below detectable limits. Please reach out if any recurrence of chest pain, however, no further intervention is required for this atypical pain. 06/30/22: Increase Seroquel to 300 mg HS. Pt reports feeling less anger today, remains with SI without plan Given a letter for work explaining absence. 07/02/23: Increase Gabapentin to tid Increase prn Tramadol to qid Lidocaine Patch x 1 Patient educated on: medical condition Informed Consent: understands Reason for continued inpatient stay Substantial Risk for: med/psych decompensation Time Spent With Patient Time: Total time managing care of this patient today ____ minutes.
[2023-07-02] MEDS: Lidocaine 4 % Patch ADH..PATCH 1 PATCH TRANSDERMA (14:56)
[2023-07-02 18:00] VITALS: BP 110/76; PULSE 100; RESP 18; TEMP 36.6; O2SAT 98
[2023-07-02] MEDS: Mirtazapine 30 MG TABLET PO (19:18)
[2023-07-02] MEDS: QUEtiapine Fumarate 300 MG TABLET PO (19:18)
[2023-07-02] MEDS: hydrOXYzine HCL 25 MG TABLET PO (19:18)
[2023-07-03 09:02] VITALS: RESP 18; TEMP 36.2
[2023-07-03 09:12] LABS: Influenza A PCR NEGATIVE (Negative); Influenza B PCR NEGATIVE (Negative); Resp Syncy Virus RNA Qual PCR NEGATIVE (Negative); SARS COV2 PCR INHOUSE NEGATIVE (Negative)
--- NOTE | 2023-07-03 14:36 | P.PNPSI_ITS ---
Subjective Subjective Date of Service: 07/03/23 Reason For Visit: Unspecified mood disorde Subjective Notes: Conditional Voluntary Healthcare Proxy: No Guardianship: No Medical Problems Affecting Mental Status: No Interim History: Pt experiencing GI flu sx today. SARS/Covid/Flu negative. Reports pain is improved as compared to 07/01. He has been rejected from a respite program due to use of Eliquis (pt does not take Eliquis), and that he has a hx of aneurysm(reports 3 mm hx, followed yearly with MRI by his OP neurologist). Medication Compliance: Yes Side effects from medications: No Attending Groups: No Review of Systems Acute medical concerns: No GI flu sx Medical Review of Systems: unchanged Review of Systems Gastrointestinal: Reports vomiting Mental Status Exam Mental Status Exam Patient Appearance: Appropriate Patient Orientation: Person, Place, Time and Situation Level of Consciousness: Alert Patient Behavior: Appropriate, Talkative, Cooperative and Good Eye Contact Mood Description: Depressed Affect Description: Flat and Apprehensive Patient Cognition Impaired: No Ability to Follow Directions: Good Speech Pattern: Spontaneous Speech Memory Description: Intact Hallucinations: None Delusions: Not Present Thought Process: Rumination and Goal Oriented Thought Content: positive for Intact, positive for Circumstantial and positive for Suicidal Ideation Depressive Symptoms: Thoughts of /Suicide Judgement: Good Diagnostics Vital Signs (24Hr): Vital Signs - 24 hr 07/02/23 18:00 07/03/23 09:02 Temperature 97.9 F 97.1 F Pulse Rate 100 Respiratory Rate 18 18 Blood Pressure 110/76 Pulse Oximetry 98 Oxygen Delivery Method Room Air BMI result Body Mass Index 31.3 Labs 06/30/23 11:09 06/30/23 11:09 Labs: Laboratory Results - last 48 hr 07/03/23 08:25 Influenza Type A (PCR) NEGATIVE Influenza Type B (PCR) NEGATIVE RSV RNA Qual (PCR) NEGATIVE SARS-CoV-2 RNA (RT-PCR) NEGATIVE Medications Medications Current Medications Acetaminophen (Acetaminophen 325 Mg Tablet) 650 mg PO Q6H PRN PRN Reason: Headache/Pain Mild Scale (1-3) Last Admin: 07/02/23 11:22 Dose: 650 mg Al Hydroxide/Mg Hydroxide (Magnesium Hydrox/Alum Hydrox 30 Ml Oral.Susp) 30 ml PO Q6H PRN PRN Reason: Heartburn/Nausea Albuterol Sulfate (Albuterol Sulfate 90 Mcg 8 Gm Inhaler) 2 puff INHALE Q6H PRN PRN Reason: Shortness Of Breath Or Wheezing Last Admin: 06/29/23 18:25 Dose: 2 puff Aspirin (Aspirin Enteric Coated 81 Mg Tablet.Dr) 81 mg PO DAILY [facility] Last Admin: 07/03/23 09:07 Dose: Not Given Bupropion HCl (Bupropion Hcl Xl 150 Mg Tab.Er.24h) 150 mg PO DAILY [facility] Last Admin: 07/03/23 09:07 Dose: Not Given Cyclobenzaprine HCl (Cyclobenzaprine Hcl 10 Mg Tablet) 10 mg PO Q4H PRN PRN Reason: musculo-skeletal discomfort Last Admin: 07/02/23 19:20 Dose: 10 mg Fluticasone/Vilanterol (Fluticasone/Vilanterol 200/25 Blst.W.Dev) 1 puff INHALE RDAILY [facility] Last Admin: 07/03/23 09:07 Dose: Not Given Gabapentin (Gabapentin 300 Mg Capsule) 600 mg PO TID [facility] Last Admin: 07/03/23 09:08 Dose: Not Given Hydroxyzine HCl (Hydroxyzine Hcl 25 Mg Tablet) 25 mg PO Q6H PRN PRN Reason: Anxiety Last Admin: 07/02/23 19:18 Dose: 25 mg Magnesium Hydroxide (Milk Of Magnesia 30 Ml Oral.Susp) 30 ml PO DAILY PRN PRN Reason: Constipation Mirtazapine (Mirtazapine 30 Mg Tablet) 30 mg PO BEDTIME [facility] Last Admin: 07/02/23 19:18 Dose: 30 mg Nicotine Polacrilex (Nicotine Polacrilex 2 Mg Gum) 4 mg BUCCAL Q2H PRN PRN Reason: Nicotine Cravings Last Admin: 06/30/23 20:53 Dose: 4 mg Olanzapine (Olanzapine 5 Mg Tablet) 5 mg PO TID PRN PRN Reason: agitation Last Admin: 06/30/23 13:45 Dose: 5 mg Quetiapine Fumarate (Quetiapine Fumarate 300 Mg Tablet) 300 mg PO BEDTIME [facility] Last Admin: 07/02/23 19:18 Dose: 300 mg Risperidone (Risperidone 0.5 Mg Tablet) 0.5 mg PO BID [facility] Last Admin: 07/03/23 09:08 Dose: Not Given Tiotropium [place] (Tiotropium [place] 2.5 Mcg 1 Puff/2.5 Mcg Mist.Inhal) 2 puff INHALE RDAILY [facility] Last Admin: 07/03/23 09:07 Dose: Not Given Tramadol HCl (Tramadol Hcl 50 Mg Tablet) 100 mg PO Q6H PRN PRN Reason: Pain, Moderate(Pain Scale 4-6) Last Admin: 07/02/23 21:15 Dose: 100 mg Trazodone HCl (Trazodone Hcl 50 Mg Tablet) 50 mg PO BEDTIME MRX1 PRN PRN Reason: Insomnia Last Admin: 06/28/23 20:20 Dose: 50 mg Vitamin D (Cholecalciferol (Vitamin D3) 25 Mcg Tablet) 25 mcg PO DAILY [facility] Last Admin: 07/03/23 09:08 Dose: Not Given Allergies Allergies Allergy/AdvReac Type Severity Reaction Status Date / Time fish derived [fish] Allergy Severe Anaphylaxis Verified 06/26/23 16:05 Penicillins Allergy Severe Anaphylaxis Verified 06/26/23 16:05 Assessment & Plan Assessment & Plan (1) MDD (major depressive disorder), recurrent severe, without psychosis: Status: Acute Code(s): F33.2 - Major depressive disorder, recurrent severe without psychotic features (2) Amputation of right thumb: Status: Acute Code(s): S68.011A - Complete traumatic metacarpophalangeal amputation of right thumb, initial encounter (3) 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 Patient was recently discharge (either from psych ED or psychiatric admission) at his own request after a few hours, since he was not allowed to use his phone to face time his beloved son while on the unit, which is of paramount importance to him and his protection factor; he went to a hotel, but suicidality remained and he called his friend to get a hold of a gun but could not reach him. Patient then self presented. On the unit he is irritable with staff, not cooperative, refused some medications including inhaler out of irritation... And because of his demeanor is somewhat difficult with which to engage. Patient shares that he has lost everything due to cancer and multiple medical comorbidities. 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 Patient said if it were not for his son he would kill himself... He sometimes says his situation is unrepairable but other times says he wants to get better; however he often does not take medication after leaving the hospital; says because of homelessness hard to engage in therapy. Reports in the past he has been on Wellbutrin and lithium; agrees to get a Wellbutrin now. Patient has been sober for 4 years; denies manic episodes saying he got a bipolar diagnosis while he was steeped in alcohol abuse. Impression: Patient is irritable and somewhat a difficult historian. Reports depression which he seems to say is mostly situational and due to medical comorbidities and being away from his son. However there is likely a mood disorder as well. Patient Demonstrating borderline traits. Patient mentions both recent intention to kill himself as well as saying he would never kill himself; also that his situation can not be fixed but is future oriented, wanting to get back to work at [employer]. He is currently on mirtazapine 30 mg q.h.s. and Seroquel 200 mg q.h.s. which he says are only to help with sleep and not being used to treat any kind of psychiatric illness. He says he was on lithium and Wellbutrin in the past both of which were helpful; agrees to getting back on Wellbutrin since it is the easier of the 2 Plan: CV Q 15 minute checks Start Wellbutrin XL 150 mg daily Continue mirtazapine 30 mg q.h.s. Continue Seroquel 200 mg q.h.s. Patient refused labs for lipid panel and hemoglobin A1c Medical assessment: 1. CAD/HLD/hx of TIAs and ischemic CVA -Continue aspirin -not on statin -Check lipid panel and consider starting on atorvastatin 40 mg daily if elevated 2. GERD: Continue PPI 3. Asthma: Not in acute exacerbation, Continue home inhalers 4. Chronic lower back pain: Continue cyclobenzaprine, gabapentin 06/28: continue current tx plan. 06/29: active on unit. Pt reports he continues to feel angry but not as much as before . Pt reports suicidal ideation; pt stated, I know I'm always going to have suicidal thoughts. I just don't know if I'd kill myself when I leave here . Pt did not disclose any plan. Pt reported chest pain; hospitalist consulted. labs and EKG ordered. Per hospitalist note: The patient's chest pain is atypical. EKG is reassuring, no ischemic changes and trop remains pending. Nitro is not indicated. The patient also has no documented or reported history of CAD/ME/angina. The nitro he was prescribed came from an ED provider for TIA's and has not seen a middle school art teacher in years. His blood pressure is 112/87. Would not recommend keeping a standing prn order of nitro for administration as patient does not describe history of anginal chest pain and instead states he knows when to take nitro if his pain is not reproducible. Troponin is below detectable limits. Please reach out if any recurrence of chest pain, however, no further intervention is required for this atypical pain. 06/30/22: Increase Seroquel to 300 mg HS. Pt reports feeling less anger today, remains with SI without plan Given a letter for work explaining absence. 07/02/23: Increase Gabapentin to tid Increase prn Tramadol to qid Lidocaine Patch x 1 07/03/23: Repear SARS/Covid/RSV on 07/04/23. Pt and team concur. Reason for continued inpatient stay Substantial Risk for: med/psych decompensation Time Spent With Patient Time: Total time managing care of this patient today ____ minutes.
[2023-07-03 18:25] VITALS: BP 121/80; PULSE 101; RESP 18; TEMP 36.9; O2SAT 95
[2023-07-03] MEDS: traMADoL HCL 50 MG TABLET 100 MG PO (20:13)
[2023-07-03] MEDS: QUEtiapine Fumarate 300 MG TABLET PO (20:16)
[2023-07-03] MEDS: Cyclobenzaprine HCl 10 MG TABLET PO (20:16)
[2023-07-03] MEDS: Mirtazapine 30 MG TABLET PO (20:16)
[2023-07-03] MEDS: risperiDONE 0.5 MG TABLET PO (20:16)
[2023-07-03] MEDS: Gabapentin 300 MG CAPSULE 600 MG PO (20:16)
[2023-07-03 20:21] VITALS: BP 121/80; PULSE 101; RESP 18; TEMP 36.9; O2SAT 92
[2023-07-03] MEDS: Ondansetron ODT 4 MG TAB.RAPDIS TRANSLINGU (20:45)
[2023-07-04] MEDS: Gabapentin 300 MG CAPSULE 600 MG PO ×3 (08:00→19:59)
[2023-07-04] MEDS: Cholecalciferol (Vitamin D3) 25 MCG TABLET PO (08:24)
[2023-07-04] MEDS: Fluticasone/Vilanterol 200/25 BLST.W.DEV 1 PUFF INHALE (08:24)
[2023-07-04] MEDS: Aspirin Enteric Coated 81 MG TABLET.DR PO (08:24)
[2023-07-04] MEDS: risperiDONE 0.5 MG TABLET PO ×2 (08:24→20:00)
[2023-07-04] MEDS: buPROPion HCl XL 150 MG TAB.ER.24H PO (08:24)
[2023-07-04] MEDS: Tiotropium Bromide 2.5 mcg 1 PUFF/2.5 MCG MIST.INHAL 2 PUFF INHALE (08:24)
[2023-07-04] MEDS: traMADoL HCL 50 MG TABLET 100 MG PO ×2 (08:58→14:51)
[2023-07-04] MEDS: Cyclobenzaprine HCl 10 MG TABLET PO ×3 (08:59→19:57)
[2023-07-04 09:04] VITALS: BP 121/78
[2023-07-04 09:40] LABS: Influenza A PCR NEGATIVE (Negative); Influenza B PCR NEGATIVE (Negative); Resp Syncy Virus RNA Qual PCR NEGATIVE (Negative); SARS COV2 PCR INHOUSE NEGATIVE (Negative)
--- NOTE | 2023-07-04 10:43 | P.PNPSI_ITS ---
Subjective Subjective Date of Service: 07/04/23 Reason For Visit: Unspecified mood disorde Subjective Notes: Conditional Voluntary Interim History: Patient was seen and discussed in rounds today. Records and plans were reviewed. He states that he still is having a lot of trouble sleeping and was wondering about raising the Seroquel and I suggested raising the trazodone to 100 mg with a repeat and he is okay to try that tonight. No vomiting today which was an issue yesterday. No other changes were made today Medication Compliance: Yes Review of Systems Review of Systems Yes all other systems are reviewed and are negative Mental Status Exam Mental Status Exam Narrative: In today's visit he is alert, oriented and pleasant. Normal speech. Good eye contact. affect is appropriate and varied. No signs of psychosis. No SI. Cognitively intact to observation. Judgment is intact Diagnostics Vital Signs (24Hr): Vital Signs - 24 hr 07/03/23 18:25 07/03/23 20:21 07/04/23 09:04 Temperature 98.4 F 98.4 F Pulse Rate 101 H 101 H Respiratory Rate 18 18 Blood Pressure 121/80 121/80 121/78 Pulse Oximetry 95 92 Oxygen Delivery Method Room Air Room Air BMI result Body Mass Index 31.3 Labs 06/30/23 11:09 06/30/23 11:09 Labs: Laboratory Results - last 48 hr 07/03/23 07/04/23 08:25 08:45 Influenza Type A (PCR) NEGATIVE NEGATIVE Influenza Type B (PCR) NEGATIVE NEGATIVE RSV RNA Qual (PCR) NEGATIVE NEGATIVE SARS-CoV-2 RNA (RT-PCR) NEGATIVE NEGATIVE Medications Medications Current Medications Acetaminophen (Acetaminophen 325 Mg Tablet) 650 mg PO Q6H PRN PRN Reason: Headache/Pain Mild Scale (1-3) Last Admin: 07/02/23 11:22 Dose: 650 mg Al Hydroxide/Mg Hydroxide (Magnesium Hydrox/Alum Hydrox 30 Ml Oral.Susp) 30 ml PO Q6H PRN PRN Reason: Heartburn/Nausea Albuterol Sulfate (Albuterol Sulfate 90 Mcg 8 Gm Inhaler) 2 puff INHALE Q6H PRN PRN Reason: Shortness Of Breath Or Wheezing Last Admin: 06/29/23 18:25 Dose: 2 puff Aspirin (Aspirin Enteric Coated 81 Mg Tablet.) 81 mg PO DAILY [facility] Last Admin: 07/04/23 08:24 Dose: 81 mg Bupropion HCl (Bupropion Hcl Xl 150 Mg Tab.Er.24h) 150 mg PO DAILY [facility] Last Admin: 07/04/23 08:24 Dose: 150 mg Cyclobenzaprine HCl (Cyclobenzaprine Hcl 10 Mg Tablet) 10 mg PO Q4H PRN PRN Reason: musculo-skeletal discomfort Last Admin: 07/04/23 08:59 Dose: 10 mg Fluticasone/Vilanterol (Fluticasone/Vilanterol 200/25 Blst.W.Dev) 1 puff INHALE RDAILY [facility] Last Admin: 07/04/23 08:24 Dose: 1 puff Gabapentin (Gabapentin 300 Mg Capsule) 600 mg PO TID [facility] Last Admin: 07/04/23 08:00 Dose: 600 mg Hydroxyzine HCl (Hydroxyzine Hcl 25 Mg Tablet) 25 mg PO Q6H PRN PRN Reason: Anxiety Last Admin: 07/02/23 19:18 Dose: 25 mg Magnesium Hydroxide (Milk Of Magnesia 30 Ml Oral.Susp) 30 ml PO DAILY PRN PRN Reason: Constipation Mirtazapine (Mirtazapine 30 Mg Tablet) 30 mg PO BEDTIME [facility] Last Admin: 07/03/23 20:16 Dose: 30 mg Nicotine Polacrilex (Nicotine Polacrilex 2 Mg Gum) 4 mg BUCCAL Q2H PRN PRN Reason: Nicotine Cravings Last Admin: 06/30/23 20:53 Dose: 4 mg Olanzapine (Olanzapine 5 Mg Tablet) 5 mg PO TID PRN PRN Reason: agitation Last Admin: 06/30/23 13:45 Dose: 5 mg Ondansetron HCl (Ondansetron Odt 4 Mg Tab.Rapdis) 4 mg TRANSLINGU Q6H PRN PRN Reason: Vomiting Last Admin: 07/03/23 20:45 Dose: 4 mg Quetiapine Fumarate (Quetiapine Fumarate 300 Mg Tablet) 300 mg PO BEDTIME [facility] Last Admin: 07/03/23 20:16 Dose: 300 mg Risperidone (Risperidone 0.5 Mg Tablet) 0.5 mg PO BID [facility] Last Admin: 07/04/23 08:24 Dose: 0.5 mg Tiotropium [place] (Tiotropium [place] 2.5 Mcg 1 Puff/2.5 Mcg Mist.Inhal) 2 puff INHALE RDAILY [facility] Last Admin: 07/04/23 08:24 Dose: 2 puff Tramadol HCl (Tramadol Hcl 50 Mg Tablet) 100 mg PO Q6H PRN PRN Reason: Pain, Moderate(Pain Scale 4-6) Last Admin: 07/04/23 08:58 Dose: 100 mg Trazodone HCl (Trazodone Hcl 50 Mg Tablet) 50 mg PO BEDTIME MRX1 PRN PRN Reason: Insomnia Last Admin: 06/28/23 20:20 Dose: 50 mg Vitamin D (Cholecalciferol (Vitamin D3) 25 Mcg Tablet) 25 mcg PO DAILY [facility] Last Admin: 07/04/23 08:24 Dose: 25 mcg Allergies Allergies Allergy/AdvReac Type Severity Reaction Status Date / Time fish derived [fish] Allergy Severe Anaphylaxis Verified 06/26/23 16:05 Penicillins Allergy Severe Anaphylaxis Verified 06/26/23 16:05 Assessment & Plan Assessment & Plan (1) MDD (major depressive disorder), recurrent severe, without psychosis: Status: Acute Code(s): F33.2 - Major depressive disorder, recurrent severe without psychotic features (2) Amputation of right thumb: Status: Acute Code(s): S68.011A - Complete traumatic metacarpophalangeal amputation of right thumb, initial encounter (3) 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 Patient was recently discharge (either from psych ED or psychiatric admission) at his own request after a few hours, since he was not allowed to use his phone to face time his beloved son while on the unit, which is of paramount importance to him and his protection factor; he went to a hotel, but suicidality remained and he called his friend to get a hold of a gun but could not reach him. Patient then self presented. On the unit he is irritable with staff, not cooperative, refused some medications including inhaler out of irritation... And because of his demeanor is somewhat difficult with which to engage. Patient shares that he has lost everything due to cancer and multiple medical comorbidities. 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 Patient said if it were not for his son he would kill himself... He sometimes says his situation is unrepairable but other times says he wants to get better; however he often does not take medication after leaving the hospital; says because of homelessness hard to engage in therapy. Reports in the past he has been on Wellbutrin and lithium; agrees to get a Wellbutrin now. Patient has been sober for 4 years; denies manic episodes saying he got a bipolar diagnosis while he was steeped in alcohol abuse. Impression: Patient is irritable and somewhat a difficult historian. Reports depression which he seems to say is mostly situational and due to medical comorbidities and being away from his son. However there is likely a mood disorder as well. Patient Demonstrating borderline traits. Patient mentions both recent intention to kill himself as well as saying he would never kill himself; also that his situation can not be fixed but is future oriented, wanting to get back to work at [employer]. He is currently on mirtazapine 30 mg q.h.s. and Seroquel 200 mg q.h.s. which he says are only to help with sleep and not being used to treat any kind of psychiatric illness. He says he was on lithium and Wellbutrin in the past both of which were helpful; agrees to getting back on Wellbutrin since it is the easier of the 2 Plan: CV Q 15 minute checks Start Wellbutrin XL 150 mg daily Continue mirtazapine 30 mg q.h.s. Continue Seroquel 200 mg q.h.s. Patient refused labs for lipid panel and hemoglobin A1c Medical assessment: 1. CAD/HLD/hx of TIAs and ischemic CVA -Continue aspirin -not on statin -Check lipid panel and consider starting on atorvastatin 40 mg daily if elevated 2. GERD: Continue PPI 3. Asthma: Not in acute exacerbation, Continue home inhalers 4. Chronic lower back pain: Continue cyclobenzaprine, gabapentin 06/28: continue current tx plan. 06/29: active on unit. Pt reports he continues to feel angry but not as much as before . Pt reports suicidal ideation; pt stated, I know I'm always going to have suicidal thoughts. I just don't know if I'd kill myself when I leave here . Pt did not disclose any plan. Pt reported chest pain; hospitalist consulted. labs and EKG ordered. Per hospitalist note: The patient's chest pain is atypical. EKG is reassuring, no ischemic changes and trop remains pending. Nitro is not indicated. The patient also has no documented or reported history of CAD/MA/angina. The nitro he was prescribed came from an ED provider for TIA's and has not seen a enterprise security architect in years. His blood pressure is 112/87. Would not recommend keeping a standing prn order of nitro for administration as patient does not describe history of anginal chest pain and instead states he knows when to take nitro if his pain is not reproducible. Troponin is below detectable limits. Please reach out if any recurrence of chest pain, however, no further intervention is required for this atypical pain. 06/30/22: Increase Seroquel to 300 mg HS. Pt reports feeling less anger today, remains with SI without plan Given a letter for work explaining absence. 07/02/23: Increase Gabapentin to tid Increase prn Tramadol to qid Lidocaine Patch x 1 07/03/23: Repear SARS/Covid/RSV on 07/04/23. Pt and team concur. 07/04/2023: Continue current regimen and plans Patient educated on: medication risk/benefits Reason for continued inpatient stay Substantial Risk for: med/psych decompensation Time Spent With Patient Time: Total time managing care of this patient today ____ minutes.
[2023-07-04] MEDS: Acetaminophen 325 MG TABLET 650 MG PO (13:27)
[2023-07-04] MEDS: Lidocaine 4 % Cream KIT 1 APPL TOPICAL (13:31)
[2023-07-04] MEDS: Nicotine Polacrilex 2 MG GUM 4 MG BUCCAL ×2 (14:51→19:58)
[2023-07-04 16:19] VITALS: BP 133/71; PULSE 94; RESP 16; TEMP 36.6; O2SAT 92
[2023-07-04] MEDS: QUEtiapine Fumarate 300 MG TABLET PO (19:59)
[2023-07-04] MEDS: Mirtazapine 30 MG TABLET PO (19:59)
[2023-07-05] MEDS: Acetaminophen 325 MG TABLET 650 MG PO (03:43)
[2023-07-05] MEDS: traZODone HCL 100 MG TABLET PO (03:44)
[2023-07-05 08:30] VITALS: BP 104/58; PULSE 99; RESP 16; TEMP 36.6; O2SAT 92
--- NOTE | 2023-07-05 08:52 | HO.PSYCHPN ---
Subjective Subjective Date of Service: 07/05/23 Reason For Visit: Unspecified mood disorde Subjective Notes: Conditional Voluntary Interim History: Patient was seen and discussed in rounds today. Records and plans were reviewed. He has been doing a little better. Eating and sleeping adequately. No complaints or side effects to trazodone. He has been refusing labs several days and lab requested discontinuation of the order which I did. No other changes were made today Medication Compliance: Yes Review of Systems Review of Systems Yes all other systems are reviewed and are negative Mental Status Exam Mental Status Exam Narrative: In today's visit he is alert, oriented and pleasant. Normal speech. Good eye contact. affect is appropriate and varied. No signs of psychosis. No SI. Cognitively intact to observation. Judgment is intact Diagnostics Vital Signs (24Hr): Vital Signs - 24 hr 07/04/23 09:04 07/04/23 16:19 Temperature 97.9 F Pulse Rate 94 Respiratory Rate 16 Blood Pressure 121/78 133/71 Pulse Oximetry 92 Oxygen Delivery Method Room Air BMI result Body Mass Index 31.3 Labs 06/30/23 11:09 06/30/23 11:09 Labs: Laboratory Results - last 48 hr 07/03/23 07/04/23 08:25 08:45 Influenza Type A (PCR) NEGATIVE NEGATIVE Influenza Type B (PCR) NEGATIVE NEGATIVE RSV RNA Qual (PCR) NEGATIVE NEGATIVE SARS-CoV-2 RNA (RT-PCR) NEGATIVE NEGATIVE Medications Medications Current Medications Acetaminophen (Acetaminophen 325 Mg Tablet) 650 mg PO Q6H PRN PRN Reason: Headache/Pain Mild Scale (1-3) Last Admin: 07/05/23 03:43 Dose: 650 mg Al Hydroxide/Mg Hydroxide (Magnesium Hydrox/Alum Hydrox 30 Ml Oral.Susp) 30 ml PO Q6H PRN PRN Reason: Heartburn/Nausea Albuterol Sulfate (Albuterol Sulfate 90 Mcg 8 Gm Inhaler) 2 puff INHALE Q6H PRN PRN Reason: Shortness Of Breath Or Wheezing Last Admin: 06/29/23 18:25 Dose: 2 puff Aspirin (Aspirin Enteric Coated 81 Mg Tablet.Dr) 81 mg PO DAILY [facility] Last Admin: 07/04/23 08:24 Dose: 81 mg Bupropion HCl (Bupropion Hcl Xl 150 Mg Tab.Er.24h) 150 mg PO DAILY [facility] Last Admin: 07/04/23 08:24 Dose: 150 mg Cyclobenzaprine HCl (Cyclobenzaprine Hcl 10 Mg Tablet) 10 mg PO Q4H PRN PRN Reason: musculo-skeletal discomfort Last Admin: 07/04/23 19:57 Dose: 10 mg Fluticasone/Vilanterol (Fluticasone/Vilanterol 200/25 Blst.W.Dev) 1 puff INHALE RDAILY [facility] Last Admin: 07/04/23 08:24 Dose: 1 puff Gabapentin (Gabapentin 300 Mg Capsule) 600 mg PO TID [facility] Last Admin: 07/04/23 19:59 Dose: 600 mg Hydroxyzine HCl (Hydroxyzine Hcl 25 Mg Tablet) 25 mg PO Q6H PRN PRN Reason: Anxiety Last Admin: 07/02/23 19:18 Dose: 25 mg Lidocaine HCl (Lidocaine 4 % Cream Kit) 1 appl TOPICAL BID PRN; Protocol PRN Reason: Pain, Moderate(Pain Scale 4-6) Last Admin: 07/04/23 13:31 Dose: 1 appl Magnesium Hydroxide (Milk Of Magnesia 30 Ml Oral.Susp) 30 ml PO DAILY PRN PRN Reason: Constipation Mirtazapine (Mirtazapine 30 Mg Tablet) 30 mg PO BEDTIME [facility] Last Admin: 07/04/23 19:59 Dose: 30 mg Nicotine Polacrilex (Nicotine Polacrilex 2 Mg Gum) 4 mg BUCCAL Q2H PRN PRN Reason: Nicotine Cravings Last Admin: 07/04/23 19:58 Dose: 4 mg Olanzapine (Olanzapine 5 Mg Tablet) 5 mg PO TID PRN PRN Reason: agitation Last Admin: 06/30/23 13:45 Dose: 5 mg Ondansetron HCl (Ondansetron Odt 4 Mg Tab.Rapdis) 4 mg TRANSLINGU Q6H PRN PRN Reason: Vomiting Last Admin: 07/03/23 20:45 Dose: 4 mg Quetiapine Fumarate (Quetiapine Fumarate 300 Mg Tablet) 300 mg PO BEDTIME [facility] Last Admin: 07/04/23 19:59 Dose: 300 mg Risperidone (Risperidone 0.5 Mg Tablet) 0.5 mg PO BID [facility] Last Admin: 07/04/23 20:00 Dose: 0.5 mg Tiotropium [place] (Tiotropium [place] 2.5 Mcg 1 Puff/2.5 Mcg Mist.Inhal) 2 puff INHALE RDAILY [facility] Last Admin: 07/04/23 08:24 Dose: 2 puff Tramadol HCl (Tramadol Hcl 50 Mg Tablet) 100 mg PO Q6H PRN PRN Reason: Pain, Moderate(Pain Scale 4-6) Last Admin: 07/04/23 14:51 Dose: 100 mg Trazodone HCl (Trazodone Hcl 100 Mg Tablet) 100 mg PO BEDTIME [facility] PRN PRN Reason: Insomnia Last Admin: 07/05/23 03:44 Dose: 100 mg Vitamin D (Cholecalciferol (Vitamin D3) 25 Mcg Tablet) 25 mcg PO DAILY [facility] Last Admin: 07/04/23 08:24 Dose: 25 mcg Allergies Allergies Allergy/AdvReac Type Severity Reaction Status Date / Time fish derived [fish] Allergy Severe Anaphylaxis Verified 06/26/23 16:05 Penicillins Allergy Severe Anaphylaxis Verified 06/26/23 16:05 Assessment & Plan Assessment & Plan (1) MDD (major depressive disorder), recurrent severe, without psychosis: Status: Acute Code(s): F33.2 - Major depressive disorder, recurrent severe without psychotic features (2) Amputation of right thumb: Status: Acute Code(s): S68.011A - Complete traumatic metacarpophalangeal amputation of right thumb, initial encounter (3) 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 Patient was recently discharge (either from psych ED or psychiatric admission) at his own request after a few hours, since he was not allowed to use his phone to face time his beloved son while on the unit, which is of paramount importance to him and his protection factor; he went to a hotel, but suicidality remained and he called his friend to get a hold of a gun but could not reach him. Patient then self presented. On the unit he is irritable with staff, not cooperative, refused some medications including inhaler out of irritation... And because of his demeanor is somewhat difficult with which to engage. Patient shares that he has lost everything due to cancer and multiple medical comorbidities. 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 Patient said if it were not for his son he would kill himself... He sometimes says his situation is unrepairable but other times says he wants to get better; however he often does not take medication after leaving the hospital; says because of homelessness hard to engage in therapy. Reports in the past he has been on Wellbutrin and lithium; agrees to get a Wellbutrin now. Patient has been sober for 4 years; denies manic episodes saying he got a bipolar diagnosis while he was steeped in alcohol abuse. Impression: Patient is irritable and somewhat a difficult historian. Reports depression which he seems to say is mostly situational and due to medical comorbidities and being away from his son. However there is likely a mood disorder as well. Patient Demonstrating borderline traits. Patient mentions both recent intention to kill himself as well as saying he would never kill himself; also that his situation can not be fixed but is future oriented, wanting to get back to work at [employer]. He is currently on mirtazapine 30 mg q.h.s. and Seroquel 200 mg q.h.s. which he says are only to help with sleep and not being used to treat any kind of psychiatric illness. He says he was on lithium and Wellbutrin in the past both of which were helpful; agrees to getting back on Wellbutrin since it is the easier of the 2 Plan: CV Q 15 minute checks Start Wellbutrin XL 150 mg daily Continue mirtazapine 30 mg q.h.s. Continue Seroquel 200 mg q.h.s. Patient refused labs for lipid panel and hemoglobin A1c Medical assessment: 1. CAD/HLD/hx of TIAs and ischemic CVA -Continue aspirin -not on statin -Check lipid panel and consider starting on atorvastatin 40 mg daily if elevated 2. GERD: Continue PPI 3. Asthma: Not in acute exacerbation, Continue home inhalers 4. Chronic lower back pain: Continue cyclobenzaprine, gabapentin 06/28: continue current tx plan. 06/29: active on unit. Pt reports he continues to feel angry but not as much as before . Pt reports suicidal ideation; pt stated, I know I'm always going to have suicidal thoughts. I just don't know if I'd kill myself when I leave here . Pt did not disclose any plan. Pt reported chest pain; hospitalist consulted. labs and EKG ordered. Per hospitalist note: The patient's chest pain is atypical. EKG is reassuring, no ischemic changes and trop remains pending. Nitro is not indicated. The patient also has no documented or reported history of CAD/MT/angina. The nitro he was prescribed came from an ED provider for TIA's and has not seen a sheeter operator in years. His blood pressure is 112/87. Would not recommend keeping a standing prn order of nitro for administration as patient does not describe history of anginal chest pain and instead states he knows when to take nitro if his pain is not reproducible. Troponin is below detectable limits. Please reach out if any recurrence of chest pain, however, no further intervention is required for this atypical pain. 06/30/22: Increase Seroquel to 300 mg HS. Pt reports feeling less anger today, remains with SI without plan Given a letter for work explaining absence. 07/02/23: Increase Gabapentin to tid Increase prn Tramadol to qid Lidocaine Patch x 1 07/03/23: Repear SARS/Covid/RSV on 07/04/23. Pt and team concur. 07/04/2023: Continue current regimen and plans 07/05/2023: Continue current regimen and plans Reason for continued inpatient stay Substantial Risk for: med/psych decompensation Time Spent With Patient Time: Total time managing care of this patient today ____ minutes.
[2023-07-05] MEDS: Cyclobenzaprine HCl 10 MG TABLET PO ×2 (12:31→19:33)
[2023-07-05] MEDS: Tiotropium Bromide 2.5 mcg 1 PUFF/2.5 MCG MIST.INHAL 2 PUFF INHALE (12:31)
[2023-07-05] MEDS: Fluticasone/Vilanterol 200/25 BLST.W.DEV 1 PUFF INHALE (12:31)
[2023-07-05] MEDS: risperiDONE 0.5 MG TABLET PO ×2 (12:32→19:33)
[2023-07-05] MEDS: buPROPion HCl XL 150 MG TAB.ER.24H PO (12:33)
[2023-07-05] MEDS: Aspirin Enteric Coated 81 MG TABLET.DR PO (12:34)
[2023-07-05] MEDS: Gabapentin 300 MG CAPSULE 600 MG PO ×2 (12:34→19:33)
[2023-07-05] MEDS: Cholecalciferol (Vitamin D3) 25 MCG TABLET PO (12:34)
[2023-07-05] MEDS: traMADoL HCL 50 MG TABLET 100 MG PO ×2 (12:35→19:34)
[2023-07-05] MEDS: Nicotine Polacrilex 2 MG GUM 4 MG BUCCAL (17:09)
[2023-07-05 18:00] VITALS: BP 118/70; PULSE 100; RESP 18; TEMP 36.7; O2SAT 98
[2023-07-05] MEDS: QUEtiapine Fumarate 300 MG TABLET PO (19:33)
[2023-07-05] MEDS: Mirtazapine 30 MG TABLET PO (19:33)
[2023-07-06 07:35] VITALS: RESP 18
[2023-07-06] MEDS: Ondansetron ODT 4 MG TAB.RAPDIS TRANSLINGU (08:52)
[2023-07-06 15:45] LABS: Influenza A PCR NEGATIVE (Negative); Influenza B PCR NEGATIVE (Negative); Resp Syncy Virus RNA Qual PCR NEGATIVE (Negative); SARS COV2 PCR INHOUSE NEGATIVE (Negative)
--- NOTE | 2023-07-06 15:46 | PM.EVENT ---
Event Note Date of Service: 07/06/23 Event Note: 47 year old male with history of multiple TIA/CVAs with sequela of right sided weakness, hld, hx brain aneurysm, DDD, s/p R thumb amputation due to squamous cell carcinoma 02/09, hx alcohol use disorder in remission, mood disorder, and atrial septal defect admitted to psychiatry [facility] consult placed to hospitalist service for evaluation nausea and vomiting. Per nursing report patient was experiencing nausea and vomiting with limited p.o. intake on Thursday but had been tolerating p.o. without any recurrent episodes of vomiting all weekend. However, this morning noted to have dry heaves but no active vomiting. However, on patient report, he reports that nausea and vomiting has been ongoing since Thursday. He states he last ate half a pizza for dinner on Thursday and since then has had constant nausea and intermittent vomiting. Tolerating limited fluids. States had dry heaves this morning with minimal clear emesis brought up. Vital signs stable. No fevers. Denies any chills, sweats, abdominal pain, diarrhea, lightheadedness, palpitations, shortness breath, chest pain. On exam, patient appears comfortable in no acute distress. Tongue is slightly dry but lips are not dry and cracked. Skin has good turgor. Abdomen is soft, nontender to palpation. No guarding or rebound. Positive bowel sounds throughout. Recommend checking BMP given patient reports minimal fluid intake since Thursday evening (not corroborated by nursing staff). If elevated creat, consider 1L IV NS bolus. Recommend zofran prn. Advised pt push clear liquids and bland diet as tolerate. Can advance diet as tolearted. There is no diarrhea. Has tested negative for influenza/covid x 2. Possible viral enteritis, but less likely given no one else sick on unit. Time Spent With Patient Time: Total time managing care of this patient today ____ minutes.
[2023-07-06 18:00] VITALS: BP 130/66; PULSE 92; RESP 18; TEMP 36.4; O2SAT 92
--- NOTE | 2023-07-06 18:13 | P.PNPSI_ITS ---
Subjective Subjective Date of Service: 07/06/23 Reason For Visit: Unspecified mood disorde Subjective Notes: Conditional Voluntary Healthcare Proxy: No Guardianship: No Medical Problems Affecting Mental Status: No Interim History: Continues with nausea. Will ask hospitalist to see pt. Reports nausea/vomiting on 07/02, stopped 07/03 then returned and continues. Believes it is Trazodone related. Requests hs meds be given at 1930, that Trazodone be stopped. Team continues to assist pt with discharge planning. Medication Compliance: Yes Side effects from medications: No Attending Groups: Intermittent Review of Systems Acute medical concerns: No Medical Review of Systems: unchanged Review of Systems Review of Systems Nausea/Vomiting Mental Status Exam Mental Status Exam Patient Appearance: Appropriate Patient Orientation: Person, Place, Time and Situation Level of Consciousness: Alert Patient Behavior: Appropriate, Talkative, Cooperative and Good Eye Contact Mood Description: Depressed Affect Description: Flat and Apprehensive Patient Cognition Impaired: No Ability to Follow Directions: Good Speech Pattern: Spontaneous Speech Memory Description: Intact Hallucinations: None Delusions: Not Present Thought Process: Rumination and Goal Oriented Thought Content: positive for Intact and positive for Circumstantial Judgement: Good Diagnostics Vital Signs (24Hr): Vital Signs - 24 hr 07/06/23 07:35 Respiratory Rate 18 BMI result Body Mass Index 31.3 Labs 06/30/23 11:09 07/06/23 18:15 Labs: Laboratory Results - last 48 hr 07/06/23 14:35 Influenza Type A (PCR) NEGATIVE Influenza Type B (PCR) NEGATIVE RSV RNA Qual (PCR) NEGATIVE SARS-CoV-2 RNA (RT-PCR) NEGATIVE Medications Medications Current Medications Acetaminophen (Acetaminophen 325 Mg Tablet) 650 mg PO Q6H PRN PRN Reason: Headache/Pain Mild Scale (1-3) Last Admin: 07/05/23 03:43 Dose: 650 mg Al Hydroxide/Mg Hydroxide (Magnesium Hydrox/Alum Hydrox 30 Ml Oral.Susp) 30 ml PO Q6H PRN PRN Reason: Heartburn/Nausea Albuterol Sulfate (Albuterol Sulfate 90 Mcg 8 Gm Inhaler) 2 puff INHALE Q6H PRN PRN Reason: Shortness Of Breath Or Wheezing Last Admin: 06/29/23 18:25 Dose: 2 puff Aspirin (Aspirin Enteric Coated 81 Mg Tablet.) 81 mg PO DAILY [facility] Last Admin: 07/06/23 10:29 Dose: Not Given Bupropion HCl (Bupropion Hcl Xl 150 Mg Tab.Er.24h) 150 mg PO DAILY [facility] Last Admin: 07/06/23 10:30 Dose: Not Given Cyclobenzaprine HCl (Cyclobenzaprine Hcl 10 Mg Tablet) 10 mg PO Q4H PRN PRN Reason: musculo-skeletal discomfort Last Admin: 07/05/23 19:33 Dose: 10 mg Fluticasone/Vilanterol (Fluticasone/Vilanterol 200/25 Blst.W.Dev) 1 puff INHALE RDAILY [facility] Last Admin: 07/06/23 10:29 Dose: Not Given Gabapentin (Gabapentin 300 Mg Capsule) 600 mg PO 0900,1400,1929 [facility] Hydroxyzine HCl (Hydroxyzine Hcl 25 Mg Tablet) 25 mg PO Q6H PRN PRN Reason: Anxiety Last Admin: 07/02/23 19:18 Dose: 25 mg Lidocaine HCl (Lidocaine 4 % Cream Kit) 1 appl TOPICAL BID PRN; Protocol PRN Reason: Pain, Moderate(Pain Scale 4-6) Last Admin: 07/04/23 13:31 Dose: 1 appl Magnesium Hydroxide (Milk Of Magnesia 30 Ml Oral.Susp) 30 ml PO DAILY PRN PRN Reason: Constipation Mirtazapine (Mirtazapine 30 Mg Tablet) 30 mg PO 1929 [facility] Nicotine Polacrilex (Nicotine Polacrilex 2 Mg Gum) 4 mg BUCCAL Q2H PRN PRN Reason: Nicotine Cravings Last Admin: 07/05/23 17:09 Dose: 4 mg Olanzapine (Olanzapine 5 Mg Tablet) 5 mg PO TID PRN PRN Reason: agitation Last Admin: 06/30/23 13:45 Dose: 5 mg Ondansetron HCl (Ondansetron Odt 4 Mg Tab.Rapdis) 4 mg TRANSLINGU Q6H PRN PRN Reason: Vomiting Last Admin: 07/06/23 08:52 Dose: 4 mg Quetiapine Fumarate (Quetiapine Fumarate 300 Mg Tablet) 300 mg PO 1929 [facility] Risperidone (Risperidone 0.5 Mg Tablet) 0.5 mg PO 899,1929 [facility] Tiotropium [place] (Tiotropium [place] 2.5 Mcg 1 Puff/2.5 Mcg Mist.Inhal) 2 puff INHALE RDAILY [facility] Last Admin: 07/06/23 10:29 Dose: Not Given Tramadol HCl (Tramadol Hcl 50 Mg Tablet) 100 mg PO Q4H PRN PRN Reason: 3 max Vitamin D (Cholecalciferol (Vitamin D3) 25 Mcg Tablet) 25 mcg PO DAILY [facility] Last Admin: 07/06/23 10:30 Dose: Not Given Allergies Allergies Allergy/AdvReac Type Severity Reaction Status Date / Time fish derived [fish] Allergy Severe Anaphylaxis Verified 06/26/23 16:05 Penicillins Allergy Severe Anaphylaxis Verified 06/26/23 16:05 Assessment & Plan Assessment & Plan (1) MDD (major depressive disorder), recurrent severe, without psychosis: Status: Acute Code(s): F33.2 - Major depressive disorder, recurrent severe without psychotic features (2) Amputation of right thumb: Status: Acute Code(s): S68.011A - Complete traumatic metacarpophalangeal amputation of right thumb, initial encounter (3) 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 Patient was recently discharge (either from psych ED or psychiatric admission) at his own request after a few hours, since he was not allowed to use his phone to face time his beloved son while on the unit, which is of paramount importance to him and his protection factor; he went to a hotel, but suicidality remained and he called his friend to get a hold of a gun but could not reach him. Patient then self presented. On the unit he is irritable with staff, not cooperative, refused some medications including inhaler out of irritation... And because of his demeanor is somewhat difficult with which to engage. Patient shares that he has lost everything due to cancer and multiple medical comorbidities. 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 Patient said if it were not for his son he would kill himself... He sometimes says his situation is unrepairable but other times says he wants to get better; however he often does not take medication after leaving the hospital; says because of homelessness hard to engage in therapy. Reports in the past he has been on Wellbutrin and lithium; agrees to get a Wellbutrin now. Patient has been sober for 4 years; denies manic episodes saying he got a bipolar diagnosis while he was steeped in alcohol abuse. Impression: Patient is irritable and somewhat a difficult historian. Reports depression which he seems to say is mostly situational and due to medical comorbidities and being away from his son. However there is likely a mood disorder as well. Patient Demonstrating borderline traits. Patient mentions both recent intention to kill himself as well as saying he would never kill himself; also that his situation can not be fixed but is future oriented, wanting to get back to work at [employer]. He is currently on mirtazapine 30 mg q.h.s. and Seroquel 200 mg q.h.s. which he says are only to help with sleep and not being used to treat any kind of psychiatric illness. He says he was on lithium and Wellbutrin in the past both of which were helpful; agrees to getting back on Wellbutrin since it is the easier of the 2 Plan: CV Q 15 minute checks Start Wellbutrin XL 150 mg daily Continue mirtazapine 30 mg q.h.s. Continue Seroquel 200 mg q.h.s. Patient refused labs for lipid panel and hemoglobin A1c Medical assessment: 1. CAD/HLD/hx of TIAs and ischemic CVA -Continue aspirin -not on statin -Check lipid panel and consider starting on atorvastatin 40 mg daily if elevated 2. GERD: Continue PPI 3. Asthma: Not in acute exacerbation, Continue home inhalers 4. Chronic lower back pain: Continue cyclobenzaprine, gabapentin 06/28: continue current tx plan. 06/29: active on unit. Pt reports he continues to feel angry but not as much as before . Pt reports suicidal ideation; pt stated, I know I'm always going to have suicidal thoughts. I just don't know if I'd kill myself when I leave here . Pt did not disclose any plan. Pt reported chest pain; hospitalist consulted. labs and EKG ordered. Per hospitalist note: The patient's chest pain is atypical. EKG is reassuring, no ischemic changes and trop remains pending. Nitro is not indicated. The patient also has no documented or reported history of CAD/ME/angina. The nitro he was prescribed came from an ED provider for TIA's and has not seen a press operator carbon blocks in years. His blood pressure is 112/87. Would not recommend keeping a standing prn order of nitro for administration as patient does not describe history of anginal chest pain and instead states he knows when to take nitro if his pain is not reproducible. Troponin is below detectable limits. Please reach out if any recurrence of chest pain, however, no further intervention is required for this atypical pain. 06/30/22: Increase Seroquel to 300 mg HS. Pt reports feeling less anger today, remains with SI without plan Given a letter for work explaining absence. 07/02/23: Increase Gabapentin to tid Increase prn Tramadol to qid Lidocaine Patch x 1 07/03/23: Repear SARS/Covid/RSV on 07/04/23. Pt and team concur. 07/04/2023: Continue current regimen and plans 07/05/2023: Continue current regimen and plans 07/06/23: Hospitalist consult for persistant nausea and vomiting Discontinue Trazodone HS Med time change to 1929 Patient educated on: medication risk/benefits, therapeutic strategies and medical condition Informed Consent: understands Reason for continued inpatient stay Substantial Risk for: rapid decompensation Time Spent With Patient Time: Total time managing care of this patient today ____ minutes.
[2023-07-06 18:40] LABS: Anion Gap 13 (12-20); Blood Urea Nitrogen 17 mg/dL (9-16); Calcium 9.6 mg/dL (8.4-10.2); Carbon Dioxide 25 mmol/L (22-29); Chloride 106 mmol/L (96-108); Creatinine Clr Calc Pharmacy 103.2; Estimated Glomerular Filt Rate > 60; Glucose Random 101 mg/dL (60-115); Potassium 4.1 mmol/L (3.3-5.1); Sodium 140 mmol/L (135-145)
[2023-07-06] MEDS: Cyclobenzaprine HCl 10 MG TABLET PO (19:14)
[2023-07-06] MEDS: Mirtazapine 30 MG TABLET PO (19:14)
[2023-07-06] MEDS: traMADoL HCL 50 MG TABLET 100 MG PO (19:14)
[2023-07-06] MEDS: Gabapentin 300 MG CAPSULE 600 MG PO (19:14)
[2023-07-06] MEDS: QUEtiapine Fumarate 300 MG TABLET PO (19:15)
[2023-07-06] MEDS: risperiDONE 0.5 MG TABLET PO (19:15)
[2023-07-07 08:00] VITALS: RESP 18
[2023-07-07] MEDS: Tiotropium Bromide 2.5 mcg 1 PUFF/2.5 MCG MIST.INHAL 2 PUFF INHALE (08:51)
[2023-07-07] MEDS: Fluticasone/Vilanterol 200/25 BLST.W.DEV 1 PUFF INHALE (08:51)
[2023-07-07] MEDS: Aspirin Enteric Coated 81 MG TABLET.DR PO (08:52)
[2023-07-07] MEDS: buPROPion HCl XL 150 MG TAB.ER.24H PO (08:53)
[2023-07-07] MEDS: Cholecalciferol (Vitamin D3) 25 MCG TABLET PO (08:53)
[2023-07-07] MEDS: risperiDONE 0.5 MG TABLET PO ×2 (08:55→21:05)
[2023-07-07] MEDS: Gabapentin 300 MG CAPSULE 600 MG PO (08:55)
[2023-07-07] MEDS: Cyclobenzaprine HCl 10 MG TABLET PO ×2 (08:56→21:04)
[2023-07-07] MEDS: traMADoL HCL 50 MG TABLET 100 MG PO ×2 (08:56→21:04)
--- NOTE | 2023-07-07 09:57 | HO.PSYCHPN ---
Subjective Subjective Date of Service: 07/07/23 Reason For Visit: Unspecified mood disorde Subjective Notes: Conditional Voluntary Healthcare Proxy: No Guardianship: No Medical Problems Affecting Mental Status: No Interim History: Reports mild relief of nausea, vomiting. Discussed [place] planning[place] [facility] [place]. Pt will make calls, including [facility] who report no referral is needed-people are accepted on a first come first serve basis. They need to carry their own meds, bring one bag of belongings. They report they accept everyone and this is a [place] [facility]. They request pt's bring a copy of their discharge paperwork for complete eval. Pt worries as he gets car sick and will need meds to prevent this-he will call Shahana Hanna at [phone]. Discussed hx of GERD/Acid Reflux-asks to add Protonix on discharge (he takes this as an out pt he reports). Goal focused-return to work, support his child, be a part of his child's life, stable housing. Medication Compliance: Yes Side effects from medications: No Attending Groups: Yes Review of Systems Nausea and vomiting are resolving Medical Review of Systems: unchanged Review of Systems Review of Systems Nausea/Vomiting Mental Status Exam Mental Status Exam Patient Appearance: Appropriate Patient Orientation: Person, Place, Time and Situation Level of Consciousness: Alert Patient Behavior: Appropriate, Talkative, Cooperative and Good Eye Contact Mood Description: Depressed Affect Description: Flat and Apprehensive Patient Cognition Impaired: No Ability to Follow Directions: Good Speech Pattern: Spontaneous Speech Memory Description: Intact Hallucinations: None Delusions: Not Present Thought Process: Rumination and Goal Oriented Thought Content: positive for Intact and positive for Circumstantial Judgement: Good Diagnostics Vital Signs (24Hr): Vital Signs - 24 hr 07/06/23 18:00 07/07/23 08:00 Temperature 97.6 F Pulse Rate 92 Respiratory Rate 18 18 Blood Pressure 130/66 Pulse Oximetry 92 Oxygen Delivery Method Room Air BMI result Body Mass Index 31.3 Labs 06/30/23 11:09 07/06/23 18:15 Labs: Laboratory Results - last 48 hr 07/06/23 07/06/23 14:35 18:15 Sodium 140 Potassium 4.1 Chloride 106 Carbon Dioxide 25 Anion Gap 13 BUN 17 H Creatinine 1.02 Estim Creat Clear Calc 103.2 Estimated GFR > 60 Random Glucose 101 Calcium 9.6 Influenza Type A (PCR) NEGATIVE Influenza Type B (PCR) NEGATIVE RSV RNA Qual (PCR) NEGATIVE SARS-CoV-2 RNA (RT-PCR) NEGATIVE Medications Medications Current Medications Acetaminophen (Acetaminophen 325 Mg Tablet) 650 mg PO Q6H PRN PRN Reason: Headache/Pain Mild Scale (1-3) Last Admin: 07/05/23 03:43 Dose: 650 mg Al Hydroxide/Mg Hydroxide (Magnesium Hydrox/Alum Hydrox 30 Ml Oral.Susp) 30 ml PO Q6H PRN PRN Reason: Heartburn/Nausea Albuterol Sulfate (Albuterol Sulfate 90 Mcg 8 Gm Inhaler) 2 puff INHALE Q6H PRN PRN Reason: Shortness Of Breath Or Wheezing Last Admin: 06/29/23 18:25 Dose: 2 puff Aspirin (Aspirin Enteric Coated 81 Mg Tablet.Dr) 81 mg PO DAILY [facility] Last Admin: 07/07/23 08:52 Dose: 81 mg Bupropion HCl (Bupropion Hcl Xl 150 Mg Tab.Er.24h) 150 mg PO DAILY [facility] Last Admin: 07/07/23 08:53 Dose: 150 mg Cyclobenzaprine HCl (Cyclobenzaprine Hcl 10 Mg Tablet) 10 mg PO Q4H PRN PRN Reason: musculo-skeletal discomfort Last Admin: 07/07/23 08:56 Dose: 10 mg Fluticasone/Vilanterol (Fluticasone/Vilanterol 200/25 Blst.W.Dev) 1 puff INHALE RDAILY [facility] Last Admin: 07/07/23 08:51 Dose: 1 puff Gabapentin (Gabapentin 300 Mg Capsule) 600 mg PO 0900,1400,1930 [facility] Last Admin: 07/07/23 08:55 Dose: 600 mg Hydroxyzine HCl (Hydroxyzine Hcl 25 Mg Tablet) 25 mg PO Q6H PRN PRN Reason: Anxiety Last Admin: 07/02/23 19:18 Dose: 25 mg Lidocaine HCl (Lidocaine 4 % Cream Kit) 1 appl TOPICAL BID PRN; Protocol PRN Reason: Pain, Moderate(Pain Scale 4-6) Last Admin: 07/04/23 13:31 Dose: 1 appl Magnesium Hydroxide (Milk Of Magnesia 30 Ml Oral.Susp) 30 ml PO DAILY PRN PRN Reason: Constipation Mirtazapine (Mirtazapine 30 Mg Tablet) 30 mg PO 1930 [facility] Last Admin: 07/06/23 19:14 Dose: 30 mg Nicotine Polacrilex (Nicotine Polacrilex 2 Mg Gum) 4 mg BUCCAL Q2H PRN PRN Reason: Nicotine Cravings Last Admin: 07/05/23 17:09 Dose: 4 mg Olanzapine (Olanzapine 5 Mg Tablet) 5 mg PO TID PRN PRN Reason: agitation Last Admin: 06/30/23 13:45 Dose: 5 mg Ondansetron HCl (Ondansetron Odt 4 Mg Tab.Rapdis) 4 mg TRANSLINGU Q6H PRN PRN Reason: Vomiting Last Admin: 07/06/23 08:52 Dose: 4 mg Quetiapine Fumarate (Quetiapine Fumarate 300 Mg Tablet) 300 mg PO 1929 [facility] Last Admin: 07/06/23 19:15 Dose: 300 mg Risperidone (Risperidone 0.5 Mg Tablet) 0.5 mg PO [facility] Last Admin: 07/07/23 08:55 Dose: 0.5 mg Tiotropium [place] (Tiotropium [place] 2.5 Mcg 1 Puff/2.5 Mcg Mist.Inhal) 2 puff INHALE RDAILY [facility] Last Admin: 07/07/23 08:51 Dose: 2 puff Tramadol HCl (Tramadol Hcl 50 Mg Tablet) 100 mg PO Q4H PRN PRN Reason: 3 max Last Admin: 07/07/23 08:56 Dose: 100 mg Vitamin D (Cholecalciferol (Vitamin D3) 25 Mcg Tablet) 25 mcg PO DAILY [facility] Last Admin: 07/07/23 08:53 Dose: 25 mcg Allergies Allergies Allergy/AdvReac Type Severity Reaction Status Date / Time fish derived [fish] Allergy Severe Anaphylaxis Verified 06/26/23 16:05 Penicillins Allergy Severe Anaphylaxis Verified 06/26/23 16:05 Assessment & Plan Assessment & Plan (1) MDD (major depressive disorder), recurrent severe, without psychosis: Status: Acute Code(s): F33.2 - Major depressive disorder, recurrent severe without psychotic features (2) Amputation of right thumb: Status: Acute Code(s): S68.011A - Complete traumatic metacarpophalangeal amputation of right thumb, initial encounter (3) 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 Patient was recently discharge (either from psych ED or psychiatric admission) at his own request after a few hours, since he was not allowed to use his phone to face time his beloved son while on the unit, which is of paramount importance to him and his protection factor; he went to a hotel, but suicidality remained and he called his friend to get a hold of a gun but could not reach him. Patient then self presented. On the unit he is irritable with staff, not cooperative, refused some medications including inhaler out of irritation... And because of his demeanor is somewhat difficult with which to engage. Patient shares that he has lost everything due to cancer and multiple medical comorbidities. 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 Patient said if it were not for his son he would kill himself... He sometimes says his situation is unrepairable but other times says he wants to get better; however he often does not take medication after leaving the hospital; says because of homelessness hard to engage in therapy. Reports in the past he has been on Wellbutrin and lithium; agrees to get a Wellbutrin now. Patient has been sober for 4 years; denies manic episodes saying he got a bipolar diagnosis while he was steeped in alcohol abuse. Impression: Patient is irritable and somewhat a difficult historian. Reports depression which he seems to say is mostly situational and due to medical comorbidities and being away from his son. However there is likely a mood disorder as well. Patient Demonstrating borderline traits. Patient mentions both recent intention to kill himself as well as saying he would never kill himself; also that his situation can not be fixed but is future oriented, wanting to get back to work at [employer]. He is currently on mirtazapine 30 mg q.h.s. and Seroquel 200 mg q.h.s. which he says are only to help with sleep and not being used to treat any kind of psychiatric illness. He says he was on lithium and Wellbutrin in the past both of which were helpful; agrees to getting back on Wellbutrin since it is the easier of the 2 Plan: CV Q 15 minute checks Start Wellbutrin XL 150 mg daily Continue mirtazapine 30 mg q.h.s. Continue Seroquel 200 mg q.h.s. Patient refused labs for lipid panel and hemoglobin A1c Medical assessment: 1. CAD/HLD/hx of TIAs and ischemic CVA -Continue aspirin -not on statin -Check lipid panel and consider starting on atorvastatin 40 mg daily if elevated 2. GERD: Continue PPI 3. Asthma: Not in acute exacerbation, Continue home inhalers 4. Chronic lower back pain: Continue cyclobenzaprine, gabapentin 06/28: continue current tx plan. 06/29: active on unit. Pt reports he continues to feel angry but not as much as before . Pt reports suicidal ideation; pt stated, I know I'm always going to have suicidal thoughts. I just don't know if I'd kill myself when I leave here . Pt did not disclose any plan. Pt reported chest pain; hospitalist consulted. labs and EKG ordered. Per hospitalist note: The patient's chest pain is atypical. EKG is reassuring, no ischemic changes and trop remains pending. Nitro is not indicated. The patient also has no documented or reported history of CAD/VT/angina. The nitro he was prescribed came from an ED provider for TIA's and has not seen a real estate management specialist in years. His blood pressure is 112/87. Would not recommend keeping a standing prn order of nitro for administration as patient does not describe history of anginal chest pain and instead states he knows when to take nitro if his pain is not reproducible. Troponin is below detectable limits. Please reach out if any recurrence of chest pain, however, no further intervention is required for this atypical pain. 06/30/22: Increase Seroquel to 300 mg HS. Pt reports feeling less anger today, remains with SI without plan Given a letter for work explaining absence. 07/02/23: Increase Gabapentin to tid Increase prn Tramadol to qid Lidocaine Patch x 1 07/03/23: Repear SARS/Covid/RSV on 07/04/23. Pt and team concur. 07/04/2023: Continue current regimen and plans 07/05/2023: Continue current regimen and plans 07/07/23: Continue current regime and care plan. Patient educated on: medication risk/benefits and therapeutic strategies Informed Consent: understands Reason for continued inpatient stay Substantial Risk for: rapid decompensation Time Spent With Patient Time: Total time managing care of this patient today ____ minutes.
[2023-07-07] MEDS: Ondansetron ODT 4 MG TAB.RAPDIS TRANSLINGU (11:36)
[2023-07-07] MEDS: Omeprazole 20 MG CAPSULE.DR PO (13:10)
[2023-07-07] MEDS: hydrOXYzine HCL 25 MG TABLET PO ×2 (14:10→20:16)
[2023-07-07 16:39] VITALS: BP 119/78; PULSE 97; RESP 18; TEMP 36.6; O2SAT 92
[2023-07-07] MEDS: Nicotine Polacrilex 2 MG GUM 4 MG BUCCAL (21:03)
[2023-07-07] MEDS: Mirtazapine 30 MG TABLET PO (21:05)
[2023-07-07] MEDS: QUEtiapine Fumarate 300 MG TABLET PO (21:05)
[2023-07-08] MEDS: risperiDONE 0.5 MG TABLET PO ×2 (09:33→19:53)
[2023-07-08] MEDS: buPROPion HCl XL 150 MG TAB.ER.24H PO (09:33)
[2023-07-08] MEDS: Aspirin Enteric Coated 81 MG TABLET.DR PO (09:33)
[2023-07-08] MEDS: Omeprazole 20 MG CAPSULE.DR PO (09:33)
[2023-07-08] MEDS: Cholecalciferol (Vitamin D3) 25 MCG TABLET PO (09:33)
[2023-07-08] MEDS: Gabapentin 300 MG CAPSULE 600 MG PO ×2 (09:33→19:53)
[2023-07-08] MEDS: Cyclobenzaprine HCl 10 MG TABLET PO ×2 (09:34→19:53)
[2023-07-08] MEDS: traMADoL HCL 50 MG TABLET 100 MG PO ×2 (09:34→19:52)
[2023-07-08] MEDS: Tiotropium Bromide 2.5 mcg 1 PUFF/2.5 MCG MIST.INHAL 2 PUFF INHALE (09:36)
[2023-07-08] MEDS: Fluticasone/Vilanterol 200/25 BLST.W.DEV 1 PUFF INHALE (09:36)
[2023-07-08 09:43] VITALS: BP 121/81; PULSE 106; RESP 18; TEMP 36.4; O2SAT 93
[2023-07-08] MEDS: hydrOXYzine HCL 25 MG TABLET PO ×2 (13:50→19:53)
[2023-07-08] MEDS: Nicotine Polacrilex 2 MG GUM 4 MG BUCCAL (13:50)
--- NOTE | 2023-07-08 16:43 | P.PNPSI_ITS ---
Subjective Subjective Date of Service: 07/08/23 Reason For Visit: Unspecified mood disorde Subjective Notes: Conditional Voluntary Healthcare Proxy: No Guardianship: No Medical Problems Affecting Mental Status: No Interim History: Reports a decrease in GI flu sx. Discharge planning continues. This will be pt's first reported experience with a [facility] placement. He is asking for certainty in securing a bed which the programs are not able to offer. Team is providing education. He reports concern for his medical issues-his insurance does not have any specific case management plans in place for medical issues-pt worries if he has to be on the street he will acquire respiratory infection and this will lead to pneumonia. He also feels ready to return to his family and work. Family (, son) are currently in a [facility] in [place]-pt wanting to be as close as possible to them and return to work as soon as possible so they may proceed in pursuit of housing. Discussed possibility of providing transportation to [place] where he has resources for shelters and is informed of the application process in that state. [place] [facility] [place] report [place] are an [place] male [facility] and accept all who apply, . In order to apply, pt would need to call their DONNELL Line at [phone]. Pt also will call [facility] [phone]. Unfortunately he cannot go to the [facility] where his and son are as there are no current family openings for 3 family members. Pt will continue to make calls this afternoon. Medication Compliance: Yes Side effects from medications: No Attending Groups: Intermittent Review of Systems Acute medical concerns: No Medical Review of Systems: unchanged Review of Systems Review of Systems Yes all other systems are reviewed and are negative Mental Status Exam Mental Status Exam Patient Appearance: Appropriate Patient Orientation: Person, Place, Time and Situation Level of Consciousness: Alert Patient Behavior: Appropriate, Talkative, Cooperative and Good Eye Contact Mood Description: Depressed Affect Description: Flat and Apprehensive Patient Cognition Impaired: No Ability to Follow Directions: Good Speech Pattern: Spontaneous Speech Memory Description: Intact Hallucinations: None Delusions: Not Present Thought Process: Rumination and Goal Oriented Thought Content: positive for Intact and positive for Circumstantial Judgement: Good Diagnostics Vital Signs (24Hr): Vital Signs - 24 hr 07/08/23 09:43 Temperature 97.5 F Pulse Rate 106 H Respiratory Rate 18 Blood Pressure 121/81 Pulse Oximetry 93 Oxygen Delivery Method Room Air BMI result Body Mass Index 31.3 Labs 06/30/23 11:09 07/06/23 18:15 Labs: Laboratory Results - last 48 hr 07/06/23 18:15 Sodium 140 Potassium 4.1 Chloride 106 Carbon Dioxide 25 Anion Gap 13 BUN 17 H Creatinine 1.02 Estim Creat Clear Calc 103.2 Estimated GFR > 60 Random Glucose 101 Calcium 9.6 Medications Medications Current Medications Acetaminophen (Acetaminophen 325 Mg Tablet) 650 mg PO Q6H PRN PRN Reason: Headache/Pain Mild Scale (1-3) Last Admin: 07/05/23 03:43 Dose: 650 mg Al Hydroxide/Mg Hydroxide (Magnesium Hydrox/Alum Hydrox 30 Ml Oral.Susp) 30 ml PO Q6H PRN PRN Reason: Heartburn/Nausea Albuterol Sulfate (Albuterol Sulfate 90 Mcg 8 Gm Inhaler) 2 puff INHALE Q6H PRN PRN Reason: Shortness Of Breath Or Wheezing Last Admin: 06/29/23 18:25 Dose: 2 puff Aspirin (Aspirin Enteric Coated 81 Mg Tablet.Dr) 81 mg PO DAILY [facility] Last Admin: 07/08/23 09:33 Dose: 81 mg Bupropion HCl (Bupropion Hcl Xl 150 Mg Tab.Er.24h) 150 mg PO DAILY [facility] Last Admin: 07/08/23 09:33 Dose: 150 mg Cyclobenzaprine HCl (Cyclobenzaprine Hcl 10 Mg Tablet) 10 mg PO Q4H PRN PRN Reason: musculo-skeletal discomfort Last Admin: 07/08/23 09:34 Dose: 10 mg Fluticasone/Vilanterol (Fluticasone/Vilanterol 200/25 Blst.W.Dev) 1 puff INHALE RDAILY [facility] Last Admin: 07/08/23 09:36 Dose: 1 puff Gabapentin (Gabapentin 300 Mg Capsule) 600 mg PO 0900,1400,1930 [facility] Last Admin: 07/08/23 15:02 Dose: Not Given Hydroxyzine HCl (Hydroxyzine Hcl 25 Mg Tablet) 25 mg PO Q6H PRN PRN Reason: Anxiety Last Admin: 07/08/23 13:50 Dose: 25 mg Lidocaine HCl (Lidocaine 4 % Cream Kit) 1 appl TOPICAL BID PRN; Protocol PRN Reason: Pain, Moderate(Pain Scale 4-6) Last Admin: 07/04/23 13:31 Dose: 1 appl Magnesium Hydroxide (Milk Of Magnesia 30 Ml Oral.Susp) 30 ml PO DAILY PRN PRN Reason: Constipation Mirtazapine (Mirtazapine 30 Mg Tablet) 30 mg PO 1929 [facility] Last Admin: 07/07/23 21:05 Dose: 30 mg Nicotine Polacrilex (Nicotine Polacrilex 2 Mg Gum) 4 mg BUCCAL Q2H PRN PRN Reason: Nicotine Cravings Last Admin: 07/08/23 13:50 Dose: 4 mg Olanzapine (Olanzapine 5 Mg Tablet) 5 mg PO TID PRN PRN Reason: agitation Last Admin: 06/30/23 13:45 Dose: 5 mg Omeprazole (Omeprazole 20 Mg Capsule.Dr) 20 mg PO DAILY@629 [facility] Last Admin: 07/08/23 09:33 Dose: 20 mg Ondansetron HCl (Ondansetron Odt 4 Mg Tab.Rapdis) 4 mg TRANSLINGU Q6H PRN PRN Reason: Vomiting Last Admin: 07/07/23 11:36 Dose: 4 mg Quetiapine Fumarate (Quetiapine Fumarate 300 Mg Tablet) 300 mg PO 1929 [facility] Last Admin: 07/07/23 21:05 Dose: 300 mg Risperidone (Risperidone 0.5 Mg Tablet) 0.5 mg PO 899,1929 [facility] Last Admin: 07/08/23 09:33 Dose: 0.5 mg Tiotropium [place] (Tiotropium [place] 2.5 Mcg 1 Puff/2.5 Mcg Mist.Inhal) 2 puff INHALE RDAILY [facility] Last Admin: 07/08/23 09:36 Dose: 2 puff Tramadol HCl (Tramadol Hcl 50 Mg Tablet) 100 mg PO Q4H PRN PRN Reason: 3 max Last Admin: 07/08/23 09:34 Dose: 100 mg Vitamin D (Cholecalciferol (Vitamin D3) 25 Mcg Tablet) 25 mcg PO DAILY [facility] Last Admin: 07/08/23 09:33 Dose: 25 mcg Allergies Allergies Allergy/AdvReac Type Severity Reaction Status Date / Time fish derived [fish] Allergy Severe Anaphylaxis Verified 06/26/23 16:05 Penicillins Allergy Severe Anaphylaxis Verified 06/26/23 16:05 Assessment & Plan Assessment & Plan (1) MDD (major depressive disorder), recurrent severe, without psychosis: Status: Acute Code(s): F33.2 - Major depressive disorder, recurrent severe without psychotic features (2) Amputation of right thumb: Status: Acute Code(s): S68.011A - Complete traumatic metacarpophalangeal amputation of right thumb, initial encounter (3) 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 Patient was recently discharge (either from psych ED or psychiatric admission) at his own request after a few hours, since he was not allowed to use his phone to face time his beloved son while on the unit, which is of paramount importance to him and his protection factor; he went to a hotel, but suicidality remained and he called his friend to get a hold of a gun but could not reach him. Patient then self presented. On the unit he is irritable with staff, not cooperative, refused some medications including inhaler out of irritation... And because of his demeanor is somewhat difficult with which to engage. Patient shares that he has lost everything due to cancer and multiple medical comorbidities. 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 Patient said if it were not for his son he would kill himself... He sometimes says his situation is unrepairable but other times says he wants to get better; however he often does not take medication after leaving the hospital; says because of homelessness hard to engage in therapy. Reports in the past he has been on Wellbutrin and lithium; agrees to get a Wellbutrin now. Patient has been sober for 4 years; denies manic episodes saying he got a bipolar diagnosis while he was steeped in alcohol abuse. Impression: Patient is irritable and somewhat a difficult historian. Reports depression which he seems to say is mostly situational and due to medical comorbidities and being away from his son. However there is likely a mood disorder as well. Patient Demonstrating borderline traits. Patient mentions both recent intention to kill himself as well as saying he would never kill himself; also that his situation can not be fixed but is future oriented, wanting to get back to work at [employer]. He is currently on mirtazapine 30 mg q.h.s. and Seroquel 200 mg q.h.s. which he says are only to help with sleep and not being used to treat any kind of psychiatric illness. He says he was on lithium and Wellbutrin in the past both of which were helpful; agrees to getting back on Wellbutrin since it is the easier of the 2 Plan: CV Q 15 minute checks Start Wellbutrin XL 150 mg daily Continue mirtazapine 30 mg q.h.s. Continue Seroquel 200 mg q.h.s. Patient refused labs for lipid panel and hemoglobin A1c Medical assessment: 1. CAD/HLD/hx of TIAs and ischemic CVA -Continue aspirin -not on statin -Check lipid panel and consider starting on atorvastatin 40 mg daily if elevated 2. GERD: Continue PPI 3. Asthma: Not in acute exacerbation, Continue home inhalers 4. Chronic lower back pain: Continue cyclobenzaprine, gabapentin 06/28: continue current tx plan. 06/29: active on unit. Pt reports he continues to feel angry but not as much as before . Pt reports suicidal ideation; pt stated, I know I'm always going to have suicidal thoughts. I just don't know if I'd kill myself when I leave here . Pt did not disclose any plan. Pt reported chest pain; hospitalist consulted. labs and EKG ordered. Per hospitalist note: The patient's chest pain is atypical. EKG is reassuring, no ischemic changes and trop remains pending. Nitro is not indicated. The patient also has no documented or reported history of CAD/VT/angina. The nitro he was prescribed came from an ED provider for TIA's and has not seen a registry np in years. His blood pressure is 112/87. Would not recommend keeping a standing prn order of nitro for administration as patient does not describe history of anginal chest pain and instead states he knows when to take nitro if his pain is not reproducible. Troponin is below detectable limits. Please reach out if any recurrence of chest pain, however, no further intervention is required for this atypical pain. 06/30/22: Increase Seroquel to 300 mg HS. Pt reports feeling less anger today, remains with SI without plan Given a letter for work explaining absence. 07/02/23: Increase Gabapentin to tid Increase prn Tramadol to qid Lidocaine Patch x 1 07/03/23: Repear SARS/Covid/RSV on 07/04/23. Pt and team concur. 07/04/2023: Continue current regimen and plans 07/05/2023: Continue current regimen and plans 07/07/23: Continue current regime and care plan. 07/08/23: Discharge planning. Continue current regime. Informed Consent: understands Reason for continued inpatient stay Substantial Risk for: stable for discharge and rapid decompensation Time Spent With Patient Time: Total time managing care of this patient today ____ minutes.
[2023-07-08 19:03] VITALS: BP 132/81; PULSE 102; RESP 18; TEMP 36.4; O2SAT 92
[2023-07-08] MEDS: QUEtiapine Fumarate 300 MG TABLET PO (19:52)
[2023-07-08] MEDS: Mirtazapine 30 MG TABLET PO (19:53)
[2023-07-08] MEDS: OLANZapine 5 MG TABLET PO (19:53)
[2023-07-09 07:00] VITALS: BMI 29.5
[2023-07-09 08:34] VITALS: RESP 18
[2023-07-09] MEDS: Aspirin Enteric Coated 81 MG TABLET.DR PO (09:49)
[2023-07-09] MEDS: buPROPion HCl XL 150 MG TAB.ER.24H PO (09:50)
[2023-07-09] MEDS: Cholecalciferol (Vitamin D3) 25 MCG TABLET PO (09:50)
[2023-07-09] MEDS: Omeprazole 20 MG CAPSULE.DR PO (09:50)
[2023-07-09] MEDS: Tiotropium Bromide 2.5 mcg 1 PUFF/2.5 MCG MIST.INHAL 2 PUFF INHALE (09:50)
[2023-07-09] MEDS: Cyclobenzaprine HCl 10 MG TABLET PO (09:50)
[2023-07-09] MEDS: Fluticasone/Vilanterol 200/25 BLST.W.DEV 1 PUFF INHALE (09:50)
[2023-07-09] MEDS: traMADoL HCL 50 MG TABLET 100 MG PO (09:50)
[2023-07-09] MEDS: Gabapentin 300 MG CAPSULE 600 MG PO (10:40)
[2023-07-09] MEDS: risperiDONE 0.5 MG TABLET PO (10:40)
[2023-07-09] MEDS: Ondansetron ODT 4 MG TAB.RAPDIS TRANSLINGU (11:44)
--- NOTE | 2023-07-09 13:18 | PM.PSYDC ---
DS: Providers Provider Date of Service: 07/09/23 Date of admission: 06/26/23 13:54 Date of discharge: 07/09/23 Primary care physician: Unknown Physician Admitting clinician: Mendez Schmidt Attending physician on admission: Mendez Schmidt Consults: 06/26/23 16:18 Consult to Hospitalist Routine Comment: Consulting Provider: Hospitalist Reason For Exam: admission physical 06/30/23 10:51 Consult to Hospitalist Routine Comment: Consulting Provider: Hospitalist Reason For Exam: Chest pain; CAD/CVA hx Attending physician on discharge: Ramiro Guevara Discharging clinician: Donna Carias DS: Diagnosis Discharge Diagnosis (1) MDD (major depressive disorder), recurrent severe, without psychosis: Status: Acute (2) Amputation of right thumb: Status: Acute (3) 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: Status: Acute (4) Ischemic cerebrovascular accident (CVA): Status: Acute DS: Medications Discharge Medications Home Medications: Home Medications Medication Instructions Recorded Confirmed Spiriva Respimat 2 puff inhalation DAILY 06/26/23 06/26/23 albuterol 2 puff inhalation Q6H PRN 06/26/23 06/26/23 Shortness Of Breath Or Wheezing aspirin 81 mg PO DAILY 06/26/23 06/26/23 budesonide-formoterol 2 puff inhalation BID 06/26/23 06/26/23 cholecalciferol (vitamin D3) 2,000 units PO DAILY 06/26/23 06/26/23 cyclobenzaprine 10 mg tablet 10 mg PO Q4H PRN Pain 06/26/23 06/26/23 gabapentin 300 mg capsule 600 mg PO BID 06/26/23 06/26/23 mirtazapine 30 mg tablet 30 mg PO BEDTIME 06/26/23 06/26/23 omeprazole 40 mg PO DAILY@0630 06/26/23 06/26/23 quetiapine 200 mg tablet 200 mg PO BEDTIME 06/26/23 06/26/23 tramadol 50 mg tablet 50 - 100 mg PO Q4H PRN Pain 06/26/23 06/26/23 Previous Rx's Medication Instructions Recorded bupropion HCl 150 mg 24 hr tablet, 150 mg PO DAILY #30 tabs 07/09/23 extended release risperidone 0.5 mg tablet 0.5 mg PO 09,1930 #60 tabs 07/09/23 Mental Status Exam Mental Status Exam Patient Appearance: Appropriate Patient Orientation: Person, Place, Time and Situation Level of Consciousness: Alert Patient Behavior: Appropriate, Talkative, Cooperative and Good Eye Contact Mood Description: Depressed Affect Description: Flat and Apprehensive Patient Cognition Impaired: No Ability to Follow Directions: Good Speech Pattern: Spontaneous Speech Memory Description: Intact Hallucinations: None Delusions: Not Present Thought Process: Rumination and Goal Oriented Thought Content: positive for Intact and positive for Circumstantial Judgement: Good Data Data Completed and Pending Completed studies during hospitalization [Text1]: 07/03/23 07/04/23 07/06/23 08:25 08:45 14:35 Sodium Potassium Chloride Carbon Dioxide Anion Gap BUN Creatinine Estim Creat Clear Calc Estimated GFR Random Glucose Calcium Influenza Type A (PCR) NEGATIVE NEGATIVE NEGATIVE Influenza Type B (PCR) NEGATIVE NEGATIVE NEGATIVE RSV RNA Qual (PCR) NEGATIVE NEGATIVE NEGATIVE SARS-CoV-2 RNA (RT-PCR) NEGATIVE NEGATIVE NEGATIVE 07/06/23 18:15 Sodium 140 Potassium 4.1 Chloride 106 Carbon Dioxide 25 Anion Gap 13 BUN 17 H Creatinine 1.02 Estim Creat Clear Calc 103.2 Estimated GFR > 60 Random Glucose 101 Calcium 9.6 Influenza Type A (PCR) Influenza Type B (PCR) RSV RNA Qual (PCR) SARS-CoV-2 RNA (RT-PCR) DS: Summary Hospital Course Hospital Course: Admission to adult psychiatry in transfer from [facility] [place] [place] for exacerbation of recurrent major depression with SI, anxiety, alcohol use disorder in sustained remission. 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 Medications were assessed and adjusted. Wellbutrin was initiated for depression. Team completed a full search for placement options. Pt was declined in the [place] area. He chose to return to [place], where his and 3yo son are staying in a retirement to be closer to them. 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 His insurance had no medical case mgt services to offer. Insurance denied refills which were sent in, however, pt reports he has medications to meet his daily schedule for the next few weeks. Status at Discharge Functional status at discharge: uses cane/walker Overall status at discharge: patient is back to baseline Time Spent with Patient Time attestation: Total time managing care of this patient today ____ minutes. Time spent: Less than 30 minutes Discharge Plan Discharge Anticipated Discharge Date/Time: 07/09/23 12:09 Patient Disposition: Assisted Discharge Diagnosis: Recurrent Major Depression Referrals: [facility] [Other] (Patient will need to self present to be evaluated for services Walk-In Hours: Thursday ? Thursday (8 a.m. ? 8 p.m.) Thursday ? Thursday (9 a.m. ? 5 p.m.) Closed on major holidays ) [facility] [Other] (Referral for [facility] step-down after discharge ) [facility] [Other] (Referral for [facility] Step-[facility] after hospitalization. Patient has been placed on the wait list for [facility] placement ) [facility] [Other] (Referral for [facility] step-down. Patient declined by [facility] due to reports of inability to address his medical needs.) Department of Mental Health: [place] [facility] [Other] (Patient referred to Department of Mental Health Patient may follow-up on referral after discharge.) Physician,Unknown J [Primary Care Provider] - (Records were not forwarded to a primary care doctor because you did not sign a release of information form. If you would like your records forwarded in future please contact the hospital.) Discharge Medications: New risperidone 0.5 mg Tablet 0.5 mg PO 899,1929 Qty: 60 0RF bupropion HCl 150 mg Tablet Extended Release 24 Hr 150 mg PO DAILY Qty: 30 0RF Continued cyclobenzaprine 10 mg tablet 10 mg PO Q4H PRN (Reason: Pain) quetiapine 200 mg tablet 200 mg PO BEDTIME tramadol 50 mg tablet 50 - 100 mg PO Q4H MDD Max 3 doses in 24 H PRN (Reason: Pain) mirtazapine 30 mg tablet 30 mg PO BEDTIME gabapentin 300 mg capsule 600 mg PO BID Spiriva Respimat 2.5 mcg inhaler 2 puff inhalation DAILY albuterol 90 mcg inhaler 2 puff inhalation Q6H PRN (Reason: Shortness Of Breath Or Wheezing) aspirin 81 mg tablet 81 mg PO DAILY Rx Instructions: X 14 days budesonide-formoterol 160 mcg inhaler 2 puff inhalation BID cholecalciferol (vitamin D3) 2,000 units tablet 2,000 units PO DAILY Rx Instructions: X 14 days omeprazole 40 mg capsule 40 mg PO DAILY@0630 Rx Instructions: Before breakfast for 14 days Discharge Orders: Discharge Order (Routine); Ordered 07/09/23 Ordered By: Donna Carias Diet: Advance to usual diet Activity on Discharge: As tolerated Stand Alone Forms: Patient Portal Discharge page, Community Support Care Plan Goals: Mood and Behavioral Stabilization Health Concerns: Mood and Behavioral Stabilization Plan of Treatment: Pt declines refills as he has his medication supply. Pt will travel to [place] to be closer to and son. He has decided to pursue retirement placement closer to family and will work with [facility] team when he arrives he reports or utilize local services he is familiar with to assist with retirement placement. Assessment: Pt interviewed prior to discharge and found to be fully oriented and without SI/HI. Pt has insight and demonstrates good judgment in terms of wanting to pursue treatment. Pt is not in imminent risk of harm to self or others and has a safety plan that includes presenting to the closest ER or calling 911 if feeling unsafe. Pt has been observed closely by nursing and unit staff throughout admission. Pt has not engaged in any behaviors that suggest dangerousness to self or others and has demonstrated appropriate behaviors and impulse control. Discharge Date/Time: 07/09/23 11:47
== END 2023-07-09 11:47 | disposition home or self-care (01) | DRG 885 ==
PROVIDERS: Physician Assistant; Psychiatry & Neurology Psychiatry; Admitting Provider Psychiatry & Neurology Psychiatry; Visit Provider Clinical Nurse Specialist Psychiatric/Mental Health, Adult
DX: F33.2 Major depressive disorder, recurrent severe without psychotic features (principal); I69.351 Hemiplegia and hemiparesis following cerebral infarction affecting right dominant side; F17.210 Nicotine dependence, cigarettes, uncomplicated; I25.10 Atherosclerotic heart disease of native coronary artery without angina pectoris; K21.9 Gastro-esophageal reflux disease without esophagitis; J45.909 Unspecified asthma, uncomplicated; M54.50 Low back pain, unspecified; G89.29 Other chronic pain; Z20.822 Contact with and (suspected) exposure to COVID-19; Z85.828 Personal history of other malignant neoplasm of skin; Z71.6 Tobacco abuse counseling; Z79.82 Long term (current) use of aspirin; Z79.899 Other long term (current) drug therapy
CPT/HCPCS: 0241U; 36415; 80048; 80053; 81001; 84484; 85025; 92950; 93005

== ENCOUNTER → 2023-06-26 13:54 | Outpatient (BNV) | payer SELFPAY | PROVIDERS: Admitting Provider Psychiatry & Neurology Psychiatry; Visit Provider Psychiatry & Neurology Psychiatry | DX: F33.2 Major depressive disorder, recurrent severe without psychotic features (principal); S68.011D Complete traumatic metacarpophalangeal amputation of right thumb, subsequent encounter; C44.621 Squamous cell carcinoma of skin of unspecified upper limb, including shoulder; Z86.73 Personal history of transient ischemic attack (TIA), and cerebral infarction without residual deficits | CPT/HCPCS: 90792; 99231; 99232; 99238 ==

== ENCOUNTER → 2023-06-26 13:54 | Outpatient (BNV) | payer SELFPAY | PROVIDERS: Admitting Provider Psychiatry & Neurology Psychiatry; Visit Provider Student in an Organized Health Care Education/Training Program | DX: R07.89 Other chest pain (principal) | CPT/HCPCS: 99232; 99429; 99499 ==